=== PATIENT | male | born 1975 | race Caucasian/White ===

== ENCOUNTER 2016-07-28 19:33 | Inpatient (IN) ==
[2016-07-28] MEDS ORDERED: Clindamycin 600 MG/50 ML 600 MG/50 ML IV.SOLN IVPB STA (19:45)
--- NOTE | 2016-07-28 19:51 | Emergency Department Note ---
START Narrative - START START: I examined this patient and my medical decision-making was reviewed with the SR TECHNICAL SALES CONSULTANT/PA/Advanced Practice Nurse/Resident Physician. I agree with the documented findings, disposition and treatment plan as described except to the extent set forth below. ED attending note: Patient seen with the emergency medicine resident . Please see a copy of his note for details of the H&P, evaluation and management and disposition of this emergency Department patient. We independently had [id number] contact with the patient. Briefly 21-year-old male transferred by EMS from the [facility]. Patient complaining of nonspecific chest pain in addition to appearing septic from rapidly progressing cellulitis from his extremities. He is up to 102.5 temperature, tachycardic 135. Patient will get EKG troponin IV fluid sepsis protocol. Patient will be admitted. Provided one hour critical care service this patient. IV antibiotics being given.
[2016-07-28 20:18] LABS: Bilirubin,Urine Negative (Negative); Blood,Urine Negative (Negative); Clarity,Urine Clear (Clear); Color,Urine Yellow (Yellow); Glucose,Urine (UA) Normal (Normal); Ketones,Urine Negative (Negative); Leukocyte Esterase,Urine Negative (Negative); Nitrite,Urine Negative (Negative); PH,Urine 7.5 pH Units (5.0-8.0); Protein,Urine Trace mg/dL (Neg-Trace); Specific Gravity,Urine 1.021 (1.010-1.025); Urobilinogen,Urine Normal (Normal)
[2016-07-28 20:21] LABS: Bacteria,Urine None Seen per hpf (None-Few); Hyaline Casts,Urine None Seen per lpf (None-Few); Squamous Epithelial Cell,Urine Moderate per lpf (None-Few); WBC,Urine 0-3 per hpf (0-3)
--- NOTE | 2016-07-28 20:21 | Emergency Department Note ---
Disposition Clinical Impression: Sepsis Qualifiers: Sepsis type: sepsis due to unspecified organism Qualified Code(s): A41.9 - Sepsis, unspecified organism Disposition: Admitted As Inpatient Condition: Fair Referrals: NO,PCP [Primary Care Provider] - Forms: ED Satisfaction Letter General Adult HPI - General Chief complaint: ED Chest Pain Stated complaint: Chest Pain Time Seen by Provider: 07/28/16 19:38 Source: patient, EMS Limitations: no limitations Nursing Notes Reviewed: Yes Vital Signs Reviewed: Yes - History of Present Illness HPI Narrative: Patient here for as a transfer from the [place] for evaluation of chest pain. Patient's symptoms initially started earlier today with left leg pain. Patient has area of erythema swelling and tenderness to the left distal leg. Patient with significant spreading throughout the day associated with nodule in the inner inguinal area as well as temperature of 103 and associated chest pain heaviness. Patient has a history of testicular cancer that they state is "okay" however is being watched every 6 months with checkups. Pain Scale: 10 - Related Data Home Medications Medication Instructions Recorded Confirmed Aripiprazole [Abilify] 5 mg PO BID 02/06/16 05/12/16 Aspirin/Acetaminophen/Caffeine 1 tab PO DAILY PRN 02/06/16 05/12/16 [Excedrin Migraine Caplet] Atenolol [Tenormin] 25 mg PO BID 02/06/16 05/12/16 Atorvastatin [Lipitor] 20 mg PO 3XW 02/06/16 05/12/16 Dexamethasone 2 mg PO BID 02/06/16 05/12/16 Duloxetine HCl 30 mg PO DAILY 02/06/16 05/12/16 Furosemide [Lasix] 20 mg PO BID 02/06/16 05/12/16 HydrOXYzine Pamoate 25 mg PO TID 02/06/16 05/12/16 LORazepam [Ativan] 0.5 mg PO DAILY 02/06/16 05/12/16 OxyCODONE ER (12 HR) [OxyCONTIN] 20 mg PO Q12H PRN 02/06/16 05/12/16 Budesonide/Formoterol 160/4.5 2 puff IH BIDR 05/12/16 05/12/16 [Symbicort 160/4.5] Cholecalciferol (D-3) [Vitamin D] 1,000 unit PO DAILY 05/12/16 05/12/16 Losartan [Cozaar] 25 mg PO DAILY 05/12/16 05/12/16 Magnesium Amino Acid Chelate 100 mg PO DAILY 05/12/16 05/12/16 [Magnesium] Metformin [Glucophage] 500 mg PO BIDWM 05/12/16 05/12/16 Metoprolol [Lopressor] 25 mg PO BID 05/12/16 05/12/16 Naproxen [Naprosyn] 250 mg PO BID PRN 05/12/16 05/12/16 Potassium Chloride [K-Tab ER] 20 meq PO DAILY 05/12/16 05/12/16 Pregabalin [Lyrica] 150 mg PO BID 05/12/16 05/12/16 Propranolol [Inderal] 20 mg PO BID 05/12/16 05/12/16 Tizanidine HCl [Zanaflex] 4 mg PO TID 05/12/16 05/12/16 TraMADol [Ultram] 100 mg PO BID PRN 05/12/16 05/12/16 Allergies Allergy/AdvReac Type Severity Reaction Status Date / Time NSAIDS (Non-Steroidal Allergy Unknown UNKNOWN Verified 07/28/16 19:47 Anti-Inflamma amitriptyline [From Elavil] Allergy See Verified 07/28/16 19:47 Comments divalproex sodium Allergy See Verified 07/28/16 19:47 Comments Rafael Pena Allergy See Verified 07/28/16 19:47 Comments lovastatin Allergy See Verified 07/28/16 19:47 Comments mirtazapine Allergy See Verified 07/28/16 19:47 Comments quetiapine Allergy See Verified 07/28/16 19:47 Comments simvastatin [From Zocor] Allergy See Verified 07/28/16 19:47 Comments trazodone Allergy See Verified 07/28/16 19:47 Comments All systems ED: reviewed and negative except as stated. Constitutional: Reports: fever, chills, weakness Eyes: Denies: eye pain ENT ED: Denies: ear pain Cardiovascular: Reports: chest pain Respiratory: Reports: dyspnea Gastrointestinal: Denies: abdominal pain, nausea Genitourinary: Denies: urgency Musculoskeletal: Denies: back pain Integumentary: Reports: other (Erythema to lower leg) Neurological: Denies: headache Psychiatric: Denies: anxiety Endocrine: Reports: fatigue Past Medical History - Past Medical History Medical history: Reports: arthritis, cancer, GERD, hyperlipidemia, hypertension , other Surgical history: Reports: cancer surgery, herniorrhaphy, orthopedic, other, other Psychiatric history: Reports: anxiety, bipolar, depression - Social History Smoking Status: Former smoker Smokeless Tobacco Status: No Alcohol use: Reports: rarely Drug use: Reports: none Physical Exam - General Limitations: no limitations General appearance: alert - Head Head exam: atraumatic, normocephalic - Eye Eye exam: Present: normal appearance - ENT ENT exam: normal exam - Neck Neck exam: Present: normal inspection - Chest Chest inspection: Present: normal inspection, symmetric chest wall rise - Respiratory Respiratory exam: Present: normal lung sounds bilaterally. Absent: respiratory distress - Cardiovascular Cardiovascular exam: Present: normal rhythm, tachycardia - Abdominal Exam Abdominal exam: Present: soft, Non-Tender - Extremities Exam Extremities exam: Present: other (Patient was swelling erythema and tenderness to the left distal leg. Not circumferential disc time. Patient with what is likely reactive lymph nodes to the inguinal region.) Course - Reevaluation(s) Reevaluation #1: Patient with elevated white count. Negative lactate. Troponin of 0.04. Patient will need hospital admission for further evaluation and management. Antibiotics given. - Consultations Consultation #1: Patient signed out to hospitalist Dr. Almodovar. Patient excepted for admission. Vital Signs Temperature 102.6 F H 07/28/16 19:39 Pulse Rate 131 07/28/16 19:39 Respiratory Rate 20 07/28/16 19:39 Blood Pressure 169/89 07/28/16 19:39 O2 Sat by Pulse Oximetry 94 L 07/28/16 19:39 Temperature 102.6 F H 07/28/16 19:39 Pulse Rate 131 07/28/16 19:39 Respiratory Rate 20 07/28/16 19:39 Blood Pressure 169/89 07/28/16 19:39 O2 Sat by Pulse Oximetry 94 L 07/28/16 19:39 Oxygen Delivery Oxygen Delivery Nasal Cannula Medical Decision Making - Medical Records Medical records reviewed: Yes I reviewed the patient's medical records. - Lab Data Lab results reviewed: Yes I reviewed the patient's lab results. Result diagrams: 07/28/16 20:16 07/28/16 20:16 Lab Results 07/28/16 07/28/16 07/28/16 Range/Units 20:04 20:16 20:16 WBC 14.9 H (4.3-11.1) K/mcL RBC 5.57 H (4.19-5.50) M/mcL Hgb 14.2 (12.9-16.9) g/dL Hct 43.7 (37.5-50.1) % MCV 78.5 L (83.0-100.0) fL MCH 25.5 L (28.0-33.3) pg MCHC 32.5 (31.6-35.5) g/dL RDW 15.1 H (11.5-14.5) % Plt Count 228 (140-400) K/mcL MPV 9.5 (9.4-12.4) fL Immature Gran % 0.4 (0-4) % Seg Neutrophils % 91.6 % Lymphocytes % 3.5 % Monocytes % 4.4 % Eosinophils % 0.0 % Basophils % 0.1 % Neutrophils # 13.7 H (1.6-8.9) K/mcL Lymphocytes # 0.5 L (0.6-4.6) K/mcL Monocytes # 0.7 (0.0-1.3) K/mcL Eosinophils # 0.0 (0.0-0.6) K/mcL Basophils # 0.0 (0.0-0.2) K/mcL PT 12.0 (9.4-12.1) Seconds INR 1.1 Sodium (136-145) mEq/L Potassium (3.5-4.5) mEq/L Chloride (98-109) mEq/L Carbon Dioxide (19-29) mEq/L BUN (8-26) mg/dL Creatinine (0.72-1.25) mg/dL Est GFR ( Amer) (> 60) Est GFR (Non-Af Amer) (> 60) BUN/Creatinine Ratio (6-26) Glucose (70-99) mg/dL Calculated Osmolality (280-300) Lactic Acid (0.5-2.2) mmol/L Calcium (8.6-10.8) mg/dL Phosphorus (2.3-4.7) mg/dL Magnesium (1.6-2.6) mg/dL Total Bilirubin (0.2-1.2) mg/dL Direct Bilirubin (0.0-0.5) mg/dL Indirect Bilirubin (0.0-1.2) mg/dL AST (5-34) Units/L ALT (0-55) Units/L Alkaline Phosphatase (38-126) Units/L Troponin I (0-0.03) ng/mL Serum Total Protein (6.0-8.3) g/dL Albumin (3.5-5.0) g/dL Globulin (2.4-3.5) g/dL Albumin/Globulin Ratio (1.1-2.2) Urine Color Yellow (Yellow) Urine Clarity Clear (Clear) Urine pH 7.5 (5.0-8.0) pH Units Ur Specific [place] 1.021 (1.010-1.025) Urine Protein Trace (Neg-Trace) mg/dL Urine Glucose (UA) Normal (Normal) mg/dL Urine Ketones Negative (Negative) mg/dL Urine Blood Negative (Negative) Urine Nitrite Negative (Negative) Urine Bilirubin Negative (Negative) Urine Urobilinogen Normal (Normal) mg/dL Ur Leukocyte Esterase Negative (Negative) Urine Microscopic RBC 3-5 H (0-3) per hpf Urine Microscopic WBC 0-3 (0-3) per hpf Ur Squamous Epith Cells Moderate H (None-Few) per lpf Urine Bacteria None Seen (None-Few) per hpf Hyaline Casts None Seen (None-Few) per lpf Ur Culture Indicated? NO (NO) 07/28/16 07/28/16 07/28/16 Range/Units 20:16 20:16 20:16 WBC (4.3-11.1) K/mcL RBC (4.19-5.50) M/mcL Hgb (12.9-16.9) g/dL Hct (37.5-50.1) % MCV (83.0-100.0) fL MCH (28.0-33.3) pg MCHC (31.6-35.5) g/dL RDW (11.5-14.5) % Plt Count (140-400) K/mcL MPV (9.4-12.4) fL Immature Gran % (0-4) % Seg Neutrophils % % Lymphocytes % % Monocytes % % Eosinophils % % Basophils % % Neutrophils # (1.6-8.9) K/mcL Lymphocytes # (0.6-4.6) K/mcL Monocytes # (0.0-1.3) K/mcL Eosinophils # (0.0-0.6) K/mcL Basophils # (0.0-0.2) K/mcL PT (9.4-12.1) Seconds INR Sodium 138 (136-145) mEq/L Potassium 4.0 (3.5-4.5) mEq/L Chloride 105 (98-109) mEq/L Carbon Dioxide 22 (19-29) mEq/L BUN 14 (8-26) mg/dL Creatinine 0.94 (0.72-1.25) mg/dL Est GFR ( Amer) > 60 (> 60) Est GFR (Non-Af Amer) > 60 (> 60) BUN/Creatinine Ratio 15 (6-26) Glucose 116 H (70-99) mg/dL Calculated Osmolality 287 (280-300) Lactic Acid 2.0 (0.5-2.2) mmol/L Calcium 9.7 (8.6-10.8) mg/dL Phosphorus 2.3 (2.3-4.7) mg/dL Magnesium 1.3 L (1.6-2.6) mg/dL Total Bilirubin 0.7 (0.2-1.2) mg/dL Direct Bilirubin 0.2 (0.0-0.5) mg/dL Indirect Bilirubin 0.5 (0.0-1.2) mg/dL AST 19 (5-34) Units/L ALT 40 (0-55) Units/L Alkaline Phosphatase 119 (38-126) Units/L Troponin I 0.04 H* (0-0.03) ng/mL Serum Total Protein 7.4 (6.0-8.3) g/dL Albumin 3.7 (3.5-5.0) g/dL Globulin 3.7 H (2.4-3.5) g/dL Albumin/Globulin Ratio 1.0 L (1.1-2.2) Urine Color (Yellow) Urine Clarity (Clear) Urine pH (5.0-8.0) pH Units Ur Specific [place] (1.010-1.025) Urine Protein (Neg-Trace) mg/dL Urine Glucose (UA) (Normal) mg/dL Urine Ketones (Negative) mg/dL Urine Blood (Negative) Urine Nitrite (Negative) Urine Bilirubin (Negative) Urine Urobilinogen (Normal) mg/dL Ur Leukocyte Esterase (Negative) Urine Microscopic RBC (0-3) per hpf Urine Microscopic WBC (0-3) per hpf Ur Squamous Epith Cells (None-Few) per lpf Urine Bacteria (None-Few) per hpf Hyaline Casts (None-Few) per lpf Ur Culture Indicated? (NO) - Radiology Data Radiology results reviewed: Yes I reviewed the patient's radiology results. - EKG Data EKG #1 EKG attestation: Yes I reviewed and interpreted this EKG. EKG results narrative: Patient's EKG shows sinus tachycardia with ventricular rate of 125. Incomplete right bundle branch block. OH interval 165. QRS 108. QTC 380. Patient has no ST elevations. Patient with mild depressions in V6 and V5 and V4. Right bundle ranch block present on previous EKG of 02/06/16. Nonspecific T-wave changes.
[2016-07-28 20:24] LABS: Basophils % 0.1 %; Hematocrit 43.7 % (37.5-50.1); Hemoglobin 14.2 g/dL (12.9-16.9); Immature Granulocytes % 0.4 % (0-4); Lymphocytes # 0.5 K/mcL (0.6-4.6); Lymphocytes % 3.5 %; Mean Corpuscular HGB Conc 32.5 g/dL (31.6-35.5); Mean Corpuscular Hemoglobin 25.5 pg (28.0-33.3); Mean Corpuscular Volume 78.5 fL (83.0-100.0); Mean Platelet Volume 9.5 fL (9.4-12.4); Monocytes # 0.7 K/mcL (0.0-1.3); Monocytes % 4.4 %; Neutrophils # 13.7 K/mcL (1.6-8.9); Platelet Count 228 K/mcL (140-400); Red Blood Count 5.57 M/mcL (4.19-5.50); Red Cell Distribution Width 15.1 % (11.5-14.5); Segmented Neutrophils % 91.6 %
[2016-07-28 20:30] LABS: INR 1.1
[2016-07-28 20:38] LABS: Alanine Aminotransferase 40 Units/L (0-55); Albumin 3.7 g/dL (3.5-5.0); Alkaline Phosphatase 119 Units/L (38-126); Aspartate Amino Transferase 19 Units/L (5-34); BUN/Creatinine Ratio 15 (6-26); Bilirubin,Direct 0.2 mg/dL (0.0-0.5); Bilirubin,Indirect 0.5 mg/dL (0.0-1.2); Bilirubin,Total 0.7 mg/dL (0.2-1.2); Blood Urea Nitrogen 14 mg/dL (8-26); Calcium 9.7 mg/dL (8.6-10.8); Carbon Dioxide 22 mEq/L (19-29); Chloride 105 mEq/L (98-109); Globulin 3.7 g/dL (2.4-3.5); Glucose 116 mg/dL (70-99); Magnesium 1.3 mg/dL (1.6-2.6); Osmolality,Calculated 287 (280-300); Phosphorous 2.3 mg/dL (2.3-4.7); Sodium 138 mEq/L (136-145); Total Protein 7.4 g/dL (6.0-8.3); eGFR For African Americans > 60 (> 60); eGFR For Non-African Americans > 60 (> 60)
[2016-07-28] MEDS ORDERED: *HR* HYDROmorphone (PF) 1 MG/ML SYRINGE IVP ONE (20:44)
[2016-07-28] MEDS ORDERED: Ondansetron 4 MG/2 ML VIAL IVP ONE (20:44)
[2016-07-28] MEDS ORDERED: 0.9 % Sodium Chloride 1,000 ML IV ONE (20:49)
[2016-07-28] MEDS ORDERED: Acetaminophen 325 MG TABLET PO PRN (22:29)
[2016-07-28] MEDS ORDERED: *HR* HYDROcodone/Acet 5/325 mg TABLET PO PRN (22:29)
[2016-07-28] MEDS ORDERED: Naloxone 0.4 MG/ML INJ IVP PRN (22:29)
--- NOTE | 2016-07-28 22:56 | Internal Med History&Physical ---
Date of Encounter: 07/28/16 Time of Encounter: 22:48 Assessment and Plan (1) Sepsis Current visit: Yes Status: Acute Patient with cellulitis, fever to 103, tachycardia (HR 103-125), WBC 14.9, lactate measured 2.0 and then 1.4 on redraw. BP dropped from 169/89 to 90/63. 1L bolus given in ED will give 2 more liters for 3L total (30Ml/kg = 3510mL) Blood cultures drawn, awaiting results ED gave Clindamycin for cellulitis Start Vanc and Unasyn for broad spectrum coverage in patient with multiple medical issues. continuous cardiac/vascular sonographer continuous pulse oximetry Qualifiers: Sepsis type: sepsis due to unspecified organism Qualified Code(s): A41.9 - Sepsis, unspecified organism (2) Chest pain Current visit: No Status: Acute Patient reported chest pain occurring along with his shooting leg pain earlier in the day. Described as shooting pain. He is febrile with tachycardia, elevated WBC and has LLE tender erythema consistent with cellulitis. Low concern for IA, but will rule out with cardiac/vascular sonographer and trend troponins. Also consider PE, will get doppler of LLE to check for DVT. Patient also with history of anxiety and likened the chest pain to panic attacks, as another possibility. Qualifiers: Chest pain type: unspecified Qualified Code(s): R07.9 - Chest pain, unspecified (3) Cellulitis Current visit: Yes Status: Acute Tender, erythematous patch on Left lower leg. Patient febrile to 103F, Tachycardia. Has multiple medical issues and pneumonia last month. Will treat with Vancomycin and Unasyn to cover for possible MRSA. Qualifiers: Site of cellulitis: extremity Site of cellulitis of extremity: lower extremity Laterality: left Qualified Code(s): L03.116 - Cellulitis of left lower limb (4) Chronic, continuous use of opioids Current visit: Yes Status: Acute Patient with chronic back pain, and on high dose of chronic opioids at home. Will continue formulary equivalent of home dose of medications and give IV dilaudid for breakthrough pain related to cellulitis. continuous pulse oximetry Narcan ordered PRN for respiratory depression (5) COPD (chronic obstructive pulmonary disease) Current visit: Yes Status: Acute Patient reports history of COPD requiring home oxygen as recently as 6 months ago. Wears cpap for sleep apnea at night. lungs clear to auscultation on exam satting 94% on 2L NC titrate O2 for O2 sat > 92% PRN duoneb treatments for any wheezing or SOB respiratory therapy consult Qualifiers: COPD type: unspecified COPD Qualified Code(s): J44.9 - Chronic obstructive pulmonary disease, unspecified (6) Chronic generalized pain disorder Current visit: No Status: Chronic Patient with spinal stimulator and on chronic opioid medication. Will continue formulary equivalent of home dose. IV dilaudid for breakthrough pain. Narcan PRN for respiratory depression (7) Nicotine dependence with nicotine-induced disorder Current visit: No Status: Chronic Patient reports he quit smoking 3 weeks ago, and now "vapes". Declined nicotine patch. Advised cessation of vaping as well. Qualifiers: Nicotine product type: cigarettes Qualified Code(s): F17.219 - Nicotine dependence, cigarettes, with unspecified nicotine-induced disorders (8) DVT prophylaxis Current visit: Yes Status: Acute ambulate with assistance heparin 5,000us SQ BID Internal Medicine - H&P: HPI Chief complaint: Leg pain, chest pain Admitted From: Emergency Dept Plans for Post Hospital Care: Home History of present illness: Mr. Aviles is a 41 year old male with history of COPD, HTN, hyperlipidemia, testicular cancer s/p orchiectomy and retroperitoneal lymphadnectomy (2005), bipolar disorder, anxiety, chronic pain and spinal stenosis who presented to the ED with pain in his left leg and chest pain. He reports the pain started earlier today in his groin and would radiate down his leg and he reports he would have chest pain at the same time. The pain is described as severe, shooting pain and worsened over the course of the day. He presented to the [facility], and was transferred here. Evaluation in the ED was significant for fever of 103 , sinus tachycardia, elevated WBC of 14.9 and patch of erythema on medial aspect of left lower leg, which was warm and tender to palpation. Troponin was 0.4, lactic acid was 2.0 and 1.4 on redraw. Blood cultures were drawn and patient was given a dose of clindamycin for cellulitis, as well as a fluid bolus. He reports associated nausea, lightheadedness with the shooting pain. He denies any headache, vomiting, palpitations, shortness of breath, abdominal pain. He reports he feel somewhat better after administration of antibiotics and pain medicine. On exam, he is alert and oriented and in no distress. He is satting 94% on 2L NC, tachycardic with HR 105, lungs clear bilaterally. He denies any current chest pain. He has a tender, palpable mass in left groin consistent with lymphadenopathy, and a patch of tender erythema on medial aspect of left lower leg. Past Med Surg Social Fam HX - Past Medical History Medical history: arthritis, cancer (testicular cancer s/p orchiectomy and retroperitoneal lymphadenectomy 2005), COPD, GERD, hyperlipidemia, hypertension , other (spinal stenosis with right foot drop, chronic pain) Psychiatric history: anxiety, bipolar, depression - Past Surgical History Surgical History: cancer surgery (orchiectomy and retroperitoneal lymphadenectomy), herniorrhaphy (right inguinal), orthopedic, other, other ( spinal stimulator) - Social History Smoking Status: Current every day smoker (quit cigarettes 3 weeks ago, now vapes ) Smokeless Tobacco Status: No Alcohol use: rarely Drug use: none - Family History Mother Living Status: Still Living Hx Family Cardiac Disorders: Yes Hx Family Respiratory Disorders: No Hx Family Cancer: Yes Hx Family GI Disorders: No Hx Family Endocrine Disorder: No Hx Family Neuromuscular Disorders: No Hx Family Neurologic Disorders: No Hx Family HEENT Disorders: No Hx Family Autoimmune Disorders: No Internal Medicine - H&P: Meds Aripiprazole [Abilify] 10 mg PO DAILY 02/06/16 [History] Atorvastatin [Lipitor] 20 mg PO DAILY 02/06/16 [History] Furosemide [Lasix] 20 mg PO BID 02/06/16 [History] HydrOXYzine Pamoate 25 mg PO TID 02/06/16 [History] Cholecalciferol (D-3) [Vitamin D] 1,000 unit PO DAILY 05/12/16 [History] Losartan [Cozaar] 25 mg PO DAILY 05/12/16 [History] Metoprolol [Lopressor] 25 mg PO BID 05/12/16 [History] Potassium Chloride [K-Tab ER] 10 meq PO DAILY 05/12/16 [History] Pregabalin [Lyrica] 150 mg PO BID 05/12/16 [History] Tizanidine HCl [Zanaflex] 4 mg PO TID 05/12/16 [History] TraMADol [Ultram] 100 mg PO BID PRN 05/12/16 [History] Oxymorphone HCl [Oxymorphone HCl ER] 20 mg PO BID 07/28/16 [History] Allergies amitriptyline [From Elavil] Allergy (Unknown, Verified 07/28/16 22:08) See Comments PATIENT UNSURE OF REACTIONS- LISTED ON [facility] CH[facility] divalproex sodium Allergy (Unknown, Verified 07/28/16 22:08) See Comments PATIENT UNSURE OF REACTIONS- LISTED ON [facility] CHART ibuprofen [From Motrin] Allergy (Unknown, Verified 07/28/16 22:08) See Comments PATIENT UNSURE OF REACTIONS- LISTED ON [facility] CHART [place] Allergy (Unknown, Verified 07/28/16 22:08) See Comments PATIENT UNSURE OF REACTIONS- LISTED ON [facility] CHART lovastatin Allergy (Unknown, Verified 07/28/16 22:08) See Comments PATIENT UNSURE OF REACTIONS- LISTED ON [facility] CHART mirtazapine Allergy (Unknown, Verified 07/28/16 22:08) See Comments PATIENT UNSURE OF REACTIONS- LISTED ON [facility] CH[facility] NSAIDS (Non-Steroidal Anti-Inflamma Allergy (Unknown, Verified 07/28/16 22:09) See Comments PATIENT UNSURE OF REACTIONS- LISTED ON [facility] CHART quetiapine Allergy (Unknown, Verified 07/28/16 22:08) See Comments PATIENT UNSURE OF REACTIONS- LISTED ON [facility] CHART simvastatin [From Zocor] Allergy (Unknown, Verified 07/28/16 22:08) See Comments PATIENT UNSURE OF REACTIONS- LISTED ON [facility] CHART trazodone Allergy (Unknown, Verified 07/28/16 22:08) See Comments PATIENT UNSURE OF REACTIONS- LISTED ON [facility] CHART Zolpidem Allergy (Unknown, Verified 07/28/16 22:08) See Comments PATIENT UNSURE OF REACTIONS- LISTED ON [facility] CHART All Systems PM: A 10-system review of systems was performed and is negative for pertinent findings except as documented above in the HPI. - Constitutional Constitutional: fever(s), malaise - EENT Eyes: no change in vision, no discharge, no pain, no photophobia Nose, mouth and throat: no dysphagia, no nasal discharge, no neck pain, no sore throat - Cardiovascular Cardiovascular ROS IM: chest pain, lightheadedness, no dyspnea, no dyspnea on exertion, no palpitations, no syncope - Respiratory Respiratory: no cough, no dyspnea, no wheezing, no excessive phlegm production - Gastrointestinal Gastrointestinal: nausea, no abdominal pain, no diarrhea, no hematemesis, no hematochezia, no melena, no vomiting - Musculoskeletal Musculoskeletal ROS IM: numbness (bilateral hands), no tingling - Integumentary Integumentary IM: as per HPI, erythema - Neurological Neurological ROS: focal weakness (chronic right foot drop), no confusion, no convulsions, no numbness, no tingling, no tremor(s) - Hematologic/Lymphatic Hematologic/Lymphatic: lymphadenopathy (left groin) - Constitutional Vitals: Temp Pulse Resp BP Pulse Ox 99.2 F 100 16 108/59 95 07/28/16 22:42 07/28/16 22:42 07/28/16 22:42 07/28/16 22:42 07/28/16 22:42 General appearance: Present: A&O X 3, no acute distress, obese - Head Head exam: Present: atraumatic, normocephalic - Eye Eye exam: Present: PERRL, conjuntiva pink, sclera anicteric Pupils: Present: PERRL - Neck Neck exam general surgery: Present: supple, trachea midline. Absent: lymphadenopathy - Respiratory Respiratory exam: Present: CTAB. Absent: accessory muscle use, rales, rhonchi, wheezes - Cardiovascular Cardiovascular exam: Present: +S1, +S2, tachycardia. Absent: diastolic murmur, systolic murmur - Expanded Cardiovascular Exam Peripheral pulses: 2+: Posterior Tibialis (L), Posterior Tibialis (R), Dorsalis Pedis (L) PM, Dorsalis Pedis (R) PM - GI/Abdominal GI/Abdominal exam: Present: normal bowel sounds, soft, no peritoneal signs. Absent: distended, tenderness - Extremities Exam Extremities exam: Present: normal capillary refill, radial pulses palpable and symetrical. Absent: pedal edema Additional comments: Tender, palpable mass in left groin consistent with lymphadenopathy - Expanded Lower Extremities Exam Lower Leg exam: Present: erythema (left), tenderness (left) - Neurological Exam Neurological exam: Present: CN II-XII intact, oriented X3, no focal deficits ( no new focal deficits. chronic right foot drop). Absent: facial droop, speech deficit - Skin Additional comments: Medial aspect of left lower leg with patch of erythema approximately 10cm x 10 cm, warm to touch and tender to palpation Internal Med - H&P Results - Labs CBC & Chem 7: 07/28/16 20:16 07/28/16 20:16
[2016-07-28] MEDS ORDERED: Vancomycin 1,750 MG in D5% in Water 250 ML IVPB SCH (23:00)
[2016-07-28] MEDS: Ampicillin/Sulbactam 3,000 MG in 0.9 % Sodium Chloride Mini Bag 100 ML IVPB SCH (23:19)
[2016-07-28] MEDS ORDERED: Ipratropium/Albuterol Neb 3 ML IH PRN (23:55)
[2016-07-29] MEDS ORDERED: Vancomycin 2,000 MG in D5% in Water 500 ML IVPB ONE
[2016-07-29] MEDS: *HR* HYDROmorphone (PF) 1 MG/ML SYRINGE IVP PRN ×5 (01:49→23:46)
[2016-07-29 03:19] LABS: BUN/Creatinine Ratio 15 (6-26); Basophils % 0.1 %; Blood Urea Nitrogen 13 mg/dL (8-26); Calcium 8.7 mg/dL (8.6-10.8); Carbon Dioxide 26 mEq/L (19-29); Chloride 105 mEq/L (98-109); Glucose 113 mg/dL (70-99); Hematocrit 39.6 % (37.5-50.1); Hemoglobin 12.9 g/dL (12.9-16.9); Immature Granulocytes % 0.3 % (0-4); Lymphocytes # 0.7 K/mcL (0.6-4.6); Mean Corpuscular HGB Conc 32.6 g/dL (31.6-35.5); Mean Corpuscular Hemoglobin 25.9 pg (28.0-33.3); Mean Corpuscular Volume 79.4 fL (83.0-100.0); Mean Platelet Volume 9.6 fL (9.4-12.4); Monocytes # 0.2 K/mcL (0.0-1.3); Monocytes % 2.1 %; Neutrophils # 10.6 K/mcL (1.6-8.9); Osmolality,Calculated 287 (280-300); Platelet Count 198 K/mcL (140-400); Potassium 3.8 mEq/L (3.5-4.5); Red Blood Count 4.99 M/mcL (4.19-5.50); Red Cell Distribution Width 15.6 % (11.5-14.5); Segmented Neutrophils % 91.5 %; Sodium 138 mEq/L (136-145); eGFR For African Americans > 60 (> 60); eGFR For Non-African Americans > 60 (> 60)
[2016-07-29] MEDS ORDERED: 0.9 % Sodium Chloride 1,000 ML ONE ×2 (03:59→05:24)
[2016-07-29] MEDS: 0.9 % Sodium Chloride 1,000 ML IVC SCH ×2 (04:02→05:24)
[2016-07-29 04:16] LABS: Platelet Estimate Normal (Normal)
[2016-07-29] MEDS: *HR* OxyCODONE ER (12 HR) 10 MG TABLET PO SCH ×2 (06:00→18:10)
[2016-07-29] MEDS: *HR* Heparin 5,000 UNIT/ML VIAL SQ SCH ×2 (06:00→18:10)
[2016-07-29] MEDS: Ampicillin/Sulbactam 3,000 MG in 0.9 % Sodium Chloride Mini Bag 100 ML IVPB SCH ×4 (06:01→23:46)
[2016-07-29] MEDS: hydrOXYzine pamoate 25 MG CAPSULE PO SCH ×3 (08:45→19:56)
[2016-07-29] MEDS: Cholecalciferol (D-3) 1,000 UNIT TABLET PO SCH (08:45)
[2016-07-29] MEDS: Pregabalin 75 MG CAPSULE PO SCH ×2 (08:46→19:56)
[2016-07-29] MEDS: tiZANidine 4 MG TABLET PO SCH ×3 (08:46→19:57)
[2016-07-29] MEDS: Furosemide 20 MG TABLET PO SCH ×2 (08:46→18:10)
[2016-07-29] MEDS: ARIPiprazole 5 MG TABLET PO SCH (08:46)
--- NOTE | 2016-07-29 08:50 | Internal Med Progress Note ---
<Mian Harry - Last Filed: 07/29/16 14:03> Date of Encounter: 07/29/16 Time of Encounter: 08:48 - Assessment and plan (1) Sepsis Current Visit: Yes Status: Acute Assessment and plan: Likely source is left leg cellulitis, which patient only noticed yesterday morning Patient no longer tachycardic, febrile, and white count improved to 11.6 from 14.9 Continue broad spectrum abx with Vancomycin and Unasyn, also received 1 dose of Clindamycin Await blood cultures prior to de-escalation Qualifiers: Sepsis type: sepsis due to unspecified organism Qualified Code(s): A41.9 - Sepsis, unspecified organism (2) COPD (chronic obstructive pulmonary disease) Current Visit: Yes Status: Chronic Assessment and plan: Not currently in exacerbation Continue with supplemental oxygen and duonebs, will add Symbicort Qualifiers: COPD type: unspecified COPD Qualified Code(s): J44.9 - Chronic obstructive pulmonary disease, unspecified (3) Cellulitis Current Visit: Yes Status: Acute Assessment and plan: Plan as above with empiric antibiotics until culture results Preliminary results of doppler did not show DVT of left leg Qualifiers: Site of cellulitis: extremity Site of cellulitis of extremity: lower extremity Laterality: left Qualified Code(s): L03.116 - Cellulitis of left lower limb (4) Chest pain Current Visit: No Status: Resolved Assessment and plan: Likely non-ACS related as troponin only had one borderline result of 0.04 and 2 negative levels He is currently chest pain free Qualifiers: Chest pain type: unspecified Qualified Code(s): R07.9 - Chest pain, unspecified (5) DVT prophylaxis Current Visit: Yes Status: Acute Assessment and plan: Heparin 5000 units BID - Subjective Interval history: Pt seen and examined. He states his chest pain is non-existent and has no issues with breathing. He still complains of leg pain especially the left calf, which shoots up to his groin. He complains of "knots" that he can feel up his left leg. He says his fever has subsided and has no issues with nausea, vomiting , diarrhea. - Constitutional Vitals: Temp Pulse Resp BP Pulse Ox 98.5 F 91 16 102/51 93 L 07/29/16 07:44 07/29/16 07:44 07/29/16 07:44 07/29/16 07:44 07/29/16 07:44 General appearance: Present: A&O X 3, no acute distress, obese - Head Head exam: Present: atraumatic, normocephalic - Eye Eye exam: Present: PERRL, conjuntiva pink, sclera anicteric - Neck Neck exam general surgery: Present: supple, trachea midline. Absent: lymphadenopathy - Respiratory Respiratory exam: Present: CTAB. Absent: accessory muscle use, rales, rhonchi, wheezes - Cardiovascular Cardiovascular exam: Present: RRR, +S1, +S2. Absent: diastolic murmur, gallop, rubs, systolic murmur - GI/Abdominal GI/Abdominal exam: Present: normal bowel sounds, soft, no peritoneal signs. Absent: distended, tenderness - Extremities Exam Extremities exam: Present: tenderness, warm (left lower extremity erythematous and warm to touch), radial pulses palpable and symetrical. Absent: calf tenderness, cyanotic, pedal edema - Neurological Exam Neurological exam: Present: alert, no focal deficits. Absent: facial droop, speech deficit - Skin Skin exam: Present: dry, intact Internal Medicine: Result - Labs CBC & Chem 7: 07/29/16 02:50 07/29/16 02:50 Labs: Short CBC 07/29/16 Range/Units 02:50 WBC 11.6 H (4.3-11.1) K/mcL Hgb 12.9 (12.9-16.9) g/dL Hct 39.6 (37.5-50.1) % Plt Count 198 (140-400) K/mcL Neutrophils # 10.6 H (1.6-8.9) K/mcL BMP 07/29/16 02:50 Sodium 138 Potassium 3.8 Chloride 105 Carbon Dioxide 26 BUN 13 Creatinine 0.85 Glucose 113 H Calcium 8.7 Cardiac Enzymes 07/29/16 Range/Units 02:50 Troponin I 0.02 (0-0.03) ng/mL - ABG Interpretation ABG results: PT/INR, D-dimer PT 12.0 Seconds (9.4-12.1) 07/28/16 20:16 Consult Discharge Plan - Plan [facility] Provider[facility] - <Jaswinder Garvin - Last Filed: 07/29/16 17:38> Date of Encounter: 07/29/16 - Assessment and plan (1) Sepsis Current Visit: Yes Status: Acute Qualifiers: Sepsis type: sepsis due to unspecified organism Qualified Code(s): A41.9 - Sepsis, unspecified organism (2) Cellulitis Current Visit: Yes Status: Acute Qualifiers: Site of cellulitis: extremity Site of cellulitis of extremity: lower extremity Laterality: left Qualified Code(s): L03.116 - Cellulitis of left lower limb (3) Chest pain Current Visit: No Status: Resolved Qualifiers: Chest pain type: precordial chest pain Qualified Code(s): R07.2 - Precordial pain (4) COPD (chronic obstructive pulmonary disease) Current Visit: Yes Status: Chronic Qualifiers: COPD type: unspecified COPD Qualified Code(s): J44.9 - Chronic obstructive pulmonary disease, unspecified (5) Bipolar disorder Current Visit: No Status: Chronic Qualifiers: Active/Remission status: in remission of unspecified degree Qualified Code( s): F31.70 - Bipolar disorder, currently in remission, most recent episode unspecified - Constitutional Vitals: Temp Pulse Resp BP Pulse Ox 102.6 F H 100 17 145/78 94 L 07/29/16 15:00 07/29/16 15:00 07/29/16 15:00 07/29/16 15:00 07/29/16 15:00 Internal Medicine: Result - Labs CBC & Chem 7: 07/29/16 02:50 07/29/16 02:50 Labs: Short CBC 07/29/16 Range/Units 02:50 WBC 11.6 H (4.3-11.1) K/mcL Hgb 12.9 (12.9-16.9) g/dL Hct 39.6 (37.5-50.1) % Plt Count 198 (140-400) K/mcL Neutrophils # 10.6 H (1.6-8.9) K/mcL BMP 07/29/16 02:50 Sodium 138 Potassium 3.8 Chloride 105 Carbon Dioxide 26 BUN 13 Creatinine 0.85 Glucose 113 H Calcium 8.7 Cardiac Enzymes 07/29/16 07/29/16 Range/Units 02:50 08:43 Troponin I 0.02 0.01 (0-0.03) ng/mL - ABG Interpretation ABG results: PT/INR, D-dimer PT 12.0 Seconds (9.4-12.1) 07/28/16 20:16 - Attending Attestation I examined this patient and my medical decision-making was reviewed with the Resident Physician. I agree with the documented findings, disposition and treatment plan as described except to the extent set forth below. Mr. Aviles is currently admitted for acute cellulitis of L leg. He remains high risk due to acute infection and needs for pain medication and IV abx. Mr. Aviles feels feverish he says. Pain in leg persists. No diarrhea. No CP or SOB. Leg is worst part. Ultrasound is negative for DVT. Exam Alert. Comfortable Heart reg Lungs diminished. Edema and erythema L leg I/P 1. Acute cellulitis L leg. 2. Sepsis improving 3. COPD 4. Chest pain Further diagnoses and plan as above.
--- NOTE | 2016-07-29 11:39 | Electrocardiograph Report ---
[facility] Test Date: 2016-07-28 Pat Name: Leandro Aviles Department: 103 Room: 2NE22 Gender: M Checker Product Design: KELLI : 1975 Requested By: Hubert Fernandez Order Number: [id number] Reading MD: Joseph Christy Measurements Intervals [place] Rate: 125 P: 67 TX: 165 QRS: 60 QRSD: 108 T: 50 QT: 306 QTc: 380 Interpretive Statements SINUS TACHYCARDIA INCOMPLETE RIGHT BUNDLE BRANCH BLOCK ABNORMAL RHYTHM ECG Electronically Signed On 07-29-16 11:38:34 EST by Joseph Christy
[2016-07-29] MEDS: Vancomycin 1,500 MG in D5% in Water 250 ML IVPB SCH (14:15)
--- NOTE | 2016-07-29 16:08 | Venous Imaging Report ---
LE Venous Duplex Patient Name:Leandro Aviles Order Number:[id number] Procedure Date:07/29/2016 Date:1975Age:41 yrs Gender:Male Location:[facility] Room #: 2NE22 Multimedia Specialist:Kayla Okeefe Referring MD:Orquidea Calero CNP ctc operator:[facility] Reading MD:Demarco Sierra MD Primary Indications:Evaluate for DVT Secondary Indications: Risk Factors Yes/No Hx of Testicular cancer/multiple lymph nodes removed Impressions: Normal left lower extremity deep and superficial venous exam. Normal contralateral common femoral vein. Findings Prior Study: No prior study available for comparison. Lower Extremity Venous Duplex Side Vein Compress Spontaneous Flow Augment Diameter (cm) Depth (cm) Left Distal Iliac Normal Yes Phasic Yes Left Common Femoral Normal Yes Phasic Yes Left Superficial Femoral Normal Yes Phasic Yes Left Popliteal Normal Yes Phasic Yes Left Posterior Tibial Normal Yes Phasic Yes Left Peroneal Normal Yes Phasic Yes Left Saphenofemoral [place] Normal Yes Phasic Yes Left Great Saphenous Normal Yes Phasic Yes Left Lesser Saphenous Normal Yes Phasic Yes Right Common Femoral Normal Yes Phasic Yes Updated by Demarco Sierra MD on 07/29/2016 4:04:40 PM electronically signed on 07/29/2016 4:04:49 PM with status of Final
[2016-07-29] MEDS: Acetaminophen 325 MG TABLET PO SCH ×3 (18:09→23:45)
[2016-07-29] MEDS: Ondansetron ODT 4 MG TAB.RAPDIS SL PRN (18:13)
[2016-07-29] MEDS: Budesonide/Formoterol 160/4.5 MDI IH SCH (21:52)
[2016-07-30] MEDS: Vancomycin 1,500 MG in D5% in Water 250 ML IVPB SCH ×2 (00:48→14:04)
[2016-07-30] MEDS: *HR* HYDROmorphone (PF) 1 MG/ML SYRINGE IVP PRN ×4 (04:21→21:20)
[2016-07-30] MEDS: Acetaminophen 325 MG TABLET PO SCH ×4 (05:56→15:59)
[2016-07-30] MEDS: *HR* OxyCODONE ER (12 HR) 10 MG TABLET PO SCH ×2 (05:56→17:18)
[2016-07-30] MEDS: *HR* Heparin 5,000 UNIT/ML VIAL SQ SCH ×2 (05:56→17:23)
[2016-07-30] MEDS: Ampicillin/Sulbactam 3,000 MG in 0.9 % Sodium Chloride Mini Bag 100 ML IVPB SCH ×4 (05:57→23:15)
[2016-07-30 07:08] LABS: Hematocrit 33.1 % (37.5-50.1); Mean Corpuscular Hemoglobin 26.2 pg (28.0-33.3); Mean Corpuscular Volume 81.7 fL (83.0-100.0); Platelet Count 145 K/mcL (140-400); Red Blood Count 4.05 M/mcL (4.19-5.50); Red Cell Distribution Width 16.1 % (11.5-14.5)
[2016-07-30 07:31] LABS: BUN/Creatinine Ratio 13 (6-26); Blood Urea Nitrogen 10 mg/dL (8-26); Calcium 8.5 mg/dL (8.6-10.8); Carbon Dioxide 24 mEq/L (19-29); Chloride 107 mEq/L (98-109); Glucose 121 mg/dL (70-99); Osmolality,Calculated 284 (280-300); Potassium 3.8 mEq/L (3.5-4.5); Sodium 137 mEq/L (136-145); eGFR For African Americans > 60 (> 60); eGFR For Non-African Americans > 60 (> 60)
[2016-07-30] MEDS: Budesonide/Formoterol 160/4.5 MDI IH SCH ×2 (08:13→21:30)
[2016-07-30 08:14] LABS: Hemoglobin 10.6 g/dL (12.9-16.9)
[2016-07-30 09:09] LABS: Lymphocytes # 0.8 K/mcL (0.6-4.6); Monocytes # 0.7 K/mcL (0.0-1.3); Neutrophils # 5.3 K/mcL (1.6-8.9)
[2016-07-30] MEDS: Ondansetron ODT 4 MG TAB.RAPDIS SL PRN (09:09)
[2016-07-30 09:10] LABS: Anisocytosis 1+ (Not Present); Macrocytosis Present (Not Present); Microcytosis Present (Not Present)
[2016-07-30] MEDS: Pregabalin 75 MG CAPSULE PO SCH ×2 (09:10→21:16)
[2016-07-30] MEDS: tiZANidine 4 MG TABLET PO SCH ×3 (09:11→21:16)
[2016-07-30] MEDS: Cholecalciferol (D-3) 1,000 UNIT TABLET PO SCH (09:11)
[2016-07-30] MEDS: hydrOXYzine pamoate 25 MG CAPSULE PO SCH ×3 (09:11→21:16)
[2016-07-30] MEDS: Furosemide 20 MG TABLET PO SCH ×2 (09:12→15:59)
[2016-07-30] MEDS: ARIPiprazole 5 MG TABLET PO SCH (09:12)
[2016-07-30] MEDS: traMADol 50 MG TABLET PO PRN (14:05)
--- NOTE | 2016-07-30 16:08 | Internal Med Progress Note ---
Date of Encounter: 07/30/16 Time of Encounter: 13:00 - Assessment and plan (1) Sepsis Current Visit: Yes Status: Resolved Assessment and plan: Improving with IV abx. Continue current meds for now. Blood cx are negative so far. Will repeat if he developed fever. Qualifiers: Sepsis type: sepsis due to unspecified organism Qualified Code(s): A41.9 - Sepsis, unspecified organism (2) Cellulitis Current Visit: Yes Status: Acute Assessment and plan: Blood cx negative thus far. Slowly improving. Qualifiers: Site of cellulitis: extremity Site of cellulitis of extremity: lower extremity Laterality: left Qualified Code(s): L03.116 - Cellulitis of left lower limb (3) COPD (chronic obstructive pulmonary disease) Current Visit: Yes Status: Chronic Assessment and plan: Not currently in exacerbation Continue with supplemental oxygen and duonebs, and Symbicort Qualifiers: COPD type: emphysema Emphysema type: panlobular Qualified Code(s): J43.1 - Panlobular emphysema (4) Chronic pain Current Visit: Yes Status: Acute Assessment and plan: Continue pain meds as at home or equivalent. Qualifiers: Chronic pain type: chronic pain syndrome Qualified Code(s): G89.4 - Chronic pain syndrome (5) Bipolar disorder Current Visit: No Status: Chronic Assessment and plan: Currently without acute issue. Qualifiers: Active/Remission status: in remission of unspecified degree Qualified Code( s): F31.70 - Bipolar disorder, currently in remission, most recent episode unspecified (6) Morbid obesity with BMI of 40.0-44.9, adult Current Visit: No Status: Chronic (7) Nicotine dependence with nicotine-induced disorder Current Visit: No Status: Chronic Qualifiers: Nicotine product type: cigarettes Qualified Code(s): F17.219 - Nicotine dependence, cigarettes, with unspecified nicotine-induced disorders (8) Dehydration Current Visit: Yes Status: Resolved - Subjective Interval history: Mr Aviles is currently admitted for acute cellulitis of his LLE. He remains high risk due to need for IV abx and pain medication and severity of the infection. Mr. Aviles has less pain today. Erythema seems to be slowly improving. Wants to be back on home pain medications. Fever seems to have improved overnight. Has been on scheduled acetaminophen. No diarrhea. - Constitutional Vitals: Temp Pulse Resp BP Pulse Ox 97.4 F L 78 16 117/63 97 07/30/16 15:31 07/30/16 15:31 07/30/16 15:31 07/30/16 15:31 07/30/16 15:31 General appearance: Present: A&O X 3, no acute distress, answers questions appropriately - Head Head exam: Present: normocephalic - Eye Eye exam: Present: EOMI, conjuntiva pink - ENT ENT exam: Present: mucous membranes moist - Respiratory Respiratory exam: Present: decreased breath sounds, CTAB - Cardiovascular Cardiovascular exam: Present: RRR. Absent: tachycardia - GI/Abdominal GI/Abdominal exam: Present: soft. Absent: mass, tenderness - Extremities Exam Extremities exam: Present: warm. Absent: pedal edema Additional comments: LLE with improving erythema but still significant anterior tibial area. Adenopathy present in groin. - Neurological Exam Neurological exam: Present: alert, oriented X3, no focal deficits - Psychiatric Psychiatric exam: Present: normal affect, normal mood - Skin Skin exam: Present: erythema, warm. Absent: rash Internal Medicine: Result - Labs CBC & Chem 7: 07/30/16 06:34 07/30/16 06:34 Labs: Short CBC 07/30/16 Range/Units 06:34 WBC 6.8 (4.3-11.1) K/mcL Hgb 10.6 L D (12.9-16.9) g/dL Hct 33.1 L (37.5-50.1) % Plt Count 145 (140-400) K/mcL Neutrophils # 5.3 (1.6-8.9) K/mcL BMP 07/30/16 06:34 Sodium 137 Potassium 3.8 Chloride 107 Carbon Dioxide 24 BUN 10 Creatinine 0.77 Glucose 121 H Calcium 8.5 L - ABG Interpretation ABG results: PT/INR, D-dimer PT 12.0 Seconds (9.4-12.1) 07/28/16 20:16 Consult Discharge Plan - Plan [facility]: [facility] [Primary Care Provider] -
[2016-07-30] MEDS: Acetaminophen 325 MG TABLET PO PRN (23:20)
[2016-07-31] MEDS: Vancomycin 2,000 MG in D5% in Water 500 ML IVPB SCH ×2 (02:46→14:43)
[2016-07-31] MEDS: Ondansetron ODT 4 MG TAB.RAPDIS SL PRN ×2 (02:49→22:54)
[2016-07-31] MEDS: *HR* HYDROmorphone (PF) 1 MG/ML SYRINGE IVP PRN ×4 (02:49→22:50)
[2016-07-31 05:42] LABS: BUN/Creatinine Ratio 14 (6-26); Blood Urea Nitrogen 11 mg/dL (8-26); Calcium 8.9 mg/dL (8.6-10.8); Carbon Dioxide 25 mEq/L (19-29); Chloride 107 mEq/L (98-109); Glucose 147 mg/dL (70-99); Magnesium 1.8 mg/dL (1.6-2.6); Osmolality,Calculated 288 (280-300); Potassium 4.2 mEq/L (3.5-4.5); Sodium 138 mEq/L (136-145); eGFR For African Americans > 60 (> 60); eGFR For Non-African Americans > 60 (> 60)
[2016-07-31] MEDS: *HR* Heparin 5,000 UNIT/ML VIAL SQ SCH ×2 (06:01→17:23)
[2016-07-31] MEDS: *HR* OxyCODONE ER (12 HR) 10 MG TABLET PO SCH ×2 (06:01→17:22)
[2016-07-31] MEDS: Ampicillin/Sulbactam 3,000 MG in 0.9 % Sodium Chloride Mini Bag 100 ML IVPB SCH ×3 (06:42→17:22)
[2016-07-31] MEDS: hydrOXYzine pamoate 25 MG CAPSULE PO SCH ×3 (09:32→20:26)
[2016-07-31] MEDS: Furosemide 20 MG TABLET PO SCH ×2 (09:32→17:21)
[2016-07-31] MEDS: tiZANidine 4 MG TABLET PO SCH ×3 (09:32→20:26)
[2016-07-31] MEDS: ARIPiprazole 5 MG TABLET PO SCH (09:33)
[2016-07-31] MEDS: Cholecalciferol (D-3) 1,000 UNIT TABLET PO SCH (09:33)
[2016-07-31] MEDS: Pregabalin 75 MG CAPSULE PO SCH ×2 (09:33→20:26)
[2016-07-31] MEDS: Budesonide/Formoterol 160/4.5 MDI IH SCH ×2 (10:31→22:33)
--- NOTE | 2016-07-31 13:18 | Internal Med Progress Note ---
<Conor Brooke - Last Filed: 07/31/16 15:50> Date of Encounter: 07/31/16 Time of Encounter: 13:18 - Assessment and plan (1) Cellulitis Current Visit: Yes Status: Acute Assessment and plan: Blood cx negative thus far. will check crp tomorrow cont unasyn day 3 and vanc day 3, patient is improvin clinically, no systemic symptoms LLE erythema, warmth and pain still present but improved shrunk compared to demarcation regions depending on clinical course and response of disease will treat from 5-14 days will perform mrsa screen Qualifiers: Site of cellulitis: extremity Site of cellulitis of extremity: lower extremity Laterality: left Qualified Code(s): L03.116 - Cellulitis of left lower limb (2) Sepsis Current Visit: Yes Status: Resolved Qualifiers: Sepsis type: sepsis due to unspecified organism Qualified Code(s): A41.9 - Sepsis, unspecified organism (3) Chronic pain Current Visit: Yes Status: Acute Assessment and plan: Continue pain meds as at home or equivalent. Qualifiers: Chronic pain type: chronic pain syndrome Qualified Code(s): G89.4 - Chronic pain syndrome (4) DVT prophylaxis Current Visit: Yes Status: Acute Assessment and plan: Heparin 5000 units BID (5) Morbid obesity with BMI of 40.0-44.9, adult Current Visit: No Status: Chronic - Time Spent With Patient 25 - 35 minutes - Constitutional Vitals: Temp Pulse Resp BP Pulse Ox 97.7 F 78 15 121/75 95 07/31/16 11:30 07/31/16 11:30 07/31/16 11:30 07/31/16 11:30 07/31/16 11:30 General appearance: Present: A&O X 3, no acute distress, answers questions appropriately - Head Head exam: Present: atraumatic, normocephalic - Eye Eye exam: Present: PERRL, conjuntiva pink, sclera anicteric Pupils: Present: PERRL - Neck Neck exam general surgery: Present: supple, trachea midline. Absent: lymphadenopathy - Respiratory Respiratory exam: Present: CTAB. Absent: accessory muscle use, rales, rhonchi, wheezes - Cardiovascular Cardiovascular exam: Present: RRR, +S1, +S2. Absent: rubs - GI/Abdominal GI/Abdominal exam: Present: normal bowel sounds, soft, no peritoneal signs. Absent: distended, tenderness - Extremities Exam Extremities exam: Present: warm, radial pulses palpable and symetrical Additional comments: LLE demarcation with pen cellulitis region has shrunk, still erythematous, warm and some pain to palpation circumferential - Neurological Exam Neurological exam: Present: CN II-XII intact, oriented X3, no focal deficits - Skin Skin exam: Present: dry Internal Medicine: Result - Labs CBC & Chem 7: 07/30/16 06:34 07/31/16 04:48 Labs: BMP 07/31/16 04:48 Sodium 138 Potassium 4.2 Chloride 107 Carbon Dioxide 25 BUN 11 Creatinine 0.81 Glucose 147 H Calcium 8.9 - ABG Interpretation ABG results: PT/INR, D-dimer PT 12.0 Seconds (9.4-12.1) 07/28/16 20:16 Consult Discharge Plan - Plan [facility]errals: [facility] [Primary Care Provider] - <Jaswinder Garvin - Last Filed: 07/31/16 17:51> Date of Encounter: 07/31/16 - Assessment and plan (1) Cellulitis Current Visit: Yes Status: Acute Qualifiers: Site of cellulitis: extremity Site of cellulitis of extremity: lower extremity Laterality: left Qualified Code(s): L03.116 - Cellulitis of left lower limb (2) Ingrown left big toenail Current Visit: Yes Status: Acute Assessment and plan: Will need podiatry to see as was most likely source of bacteria to leg. (3) COPD (chronic obstructive pulmonary disease) Current Visit: Yes Status: Chronic Qualifiers: COPD type: emphysema Emphysema type: panlobular Qualified Code(s): J43.1 - Panlobular emphysema (4) Chronic pain Current Visit: Yes Status: Acute Qualifiers: Chronic pain type: chronic pain syndrome Qualified Code(s): G89.4 - Chronic pain syndrome (5) Bipolar disorder Current Visit: No Status: Chronic Qualifiers: Active/Remission status: in remission of unspecified degree Qualified Code( s): F31.70 - Bipolar disorder, currently in remission, most recent episode unspecified (6) Morbid obesity with BMI of 40.0-44.9, adult Current Visit: No Status: Chronic (7) Nicotine dependence with nicotine-induced disorder Current Visit: No Status: Chronic Qualifiers: Nicotine product type: cigarettes Qualified Code(s): F17.219 - Nicotine dependence, cigarettes, with unspecified nicotine-induced disorders (8) Dehydration Current Visit: Yes Status: Resolved - Constitutional Vitals: Temp Pulse Resp BP Pulse Ox 98.5 F 73 15 109/56 96 07/31/16 15:00 07/31/16 15:00 07/31/16 15:00 07/31/16 15:00 07/31/16 15:00 Internal Medicine: Result - Labs CBC & Chem 7: 07/30/16 06:34 07/31/16 04:48 Labs: BMP 07/31/16 04:48 Sodium 138 Potassium 4.2 Chloride 107 Carbon Dioxide 25 BUN 11 Creatinine 0.81 Glucose 147 H Calcium 8.9 - ABG Interpretation ABG results: PT/INR, D-dimer PT 12.0 Seconds (9.4-12.1) 07/28/16 20:16 - Attending Attestation I examined this patient and my medical decision-making was reviewed with the Resident Physician. I agree with the documented findings, disposition and treatment plan as described except to the extent set forth below. Mr. Aviles is currently admitted for cellulitis LLE. He remains moderate to high risk due to potential of worsening infection and sepsis. Mr. Aviles has less pain today. He relayed about a recent ingrown toenail on the same leg. It has been draining over last few weeks. Has appt at [facility] on . Slept OK. PO pain meds ok now. Went over 9 hours between Dilaudid doses. Exam Alert. Pleasant Heart reg Lungs clear LLE with erythema continuing to recede. Ingrown great toe on Left Edema present I/P 1. Acute cellulitis LLE - most likely staph or strep. Seems to be responding to IV abx as ordered. Will continue today. 2. Ingrown toenail - plan consult to podiatry tomorrow. 3. Chronic pain/back pain. Further diagnoses and plan as above.
[2016-07-31] MEDS: traMADol 50 MG TABLET PO PRN (20:26)
[2016-08-01] MEDS: Ampicillin/Sulbactam 3,000 MG in 0.9 % Sodium Chloride Mini Bag 100 ML IVPB SCH ×5 (00:17→23:46)
[2016-08-01] MEDS: Acetaminophen 325 MG TABLET PO PRN ×2 (01:03→20:23)
[2016-08-01] MEDS: Vancomycin 2,000 MG in D5% in Water 500 ML IVPB SCH ×2 (01:04→13:52)
[2016-08-01] MEDS: *HR* HYDROmorphone (PF) 1 MG/ML SYRINGE IVP PRN ×4 (05:22→20:23)
[2016-08-01] MEDS: *HR* OxyCODONE ER (12 HR) 10 MG TABLET PO SCH ×2 (06:55→16:55)
[2016-08-01] MEDS: *HR* Heparin 5,000 UNIT/ML VIAL SQ SCH ×2 (06:56→16:55)
[2016-08-01 07:03] LABS: BUN/Creatinine Ratio 9 (6-26); Blood Urea Nitrogen 7 mg/dL (8-26); C-Reactive Protein 157 mg/L (Less than 5); Calcium 8.9 mg/dL (8.6-10.8); Carbon Dioxide 15 mEq/L (19-29); Chloride 110 mEq/L (98-109); Glucose 149 mg/dL (70-99); Osmolality,Calculated 289 (280-300); Sodium 139 mEq/L (136-145); eGFR For African Americans > 60 (> 60); eGFR For Non-African Americans > 60 (> 60)
[2016-08-01 07:07] LABS: Potassium 4.7 mEq/L (3.5-4.5)
[2016-08-01 08:30] LABS: Basophils % 0.3 %; Eosinophils # 0.1 K/mcL (0.0-0.6); Eosinophils % 1.9 %; Hemoglobin 11.2 g/dL (12.9-16.9); Immature Granulocytes % 0.7 % (0-4); Immature Platelets 3.9 % (1.1-6.1); Lymphocytes # 1.2 K/mcL (0.6-4.6); Lymphocytes % 21.3 %; Mean Corpuscular Hemoglobin 25.9 pg (28.0-33.3); Monocytes # 0.6 K/mcL (0.0-1.3); Monocytes % 10.1 %; Neutrophils # 3.8 K/mcL (1.6-8.9); Platelet Count 204 K/mcL (140-400); Red Blood Count 4.32 M/mcL (4.19-5.50); Red Cell Distribution Width 15.7 % (11.5-14.5); Segmented Neutrophils % 65.7 %
[2016-08-01] MEDS: Cholecalciferol (D-3) 1,000 UNIT TABLET PO SCH (09:19)
[2016-08-01] MEDS: ARIPiprazole 5 MG TABLET PO SCH (09:19)
[2016-08-01] MEDS: Furosemide 20 MG TABLET PO SCH ×2 (09:20→20:03)
[2016-08-01] MEDS: Pregabalin 75 MG CAPSULE PO SCH ×2 (09:20→20:23)
[2016-08-01] MEDS: tiZANidine 4 MG TABLET PO SCH ×3 (09:20→20:23)
[2016-08-01] MEDS: hydrOXYzine pamoate 25 MG CAPSULE PO SCH ×3 (09:21→20:23)
[2016-08-01] MEDS: Budesonide/Formoterol 160/4.5 MDI IH SCH ×2 (10:14→21:16)
[2016-08-01] MEDS: traMADol 50 MG TABLET PO PRN ×2 (11:44→23:47)
--- NOTE | 2016-08-01 11:52 | Internal Med Progress Note ---
<Conor Brooke - Last Filed: 08/01/16 15:58> Date of Encounter: 08/01/16 Time of Encounter: 15:58 - Assessment and plan (1) Cellulitis Current Visit: Yes Status: Acute Assessment and plan: overall slightly worsened in terms of pain, but patient afebrile over night. there was slight increase in erythema towards the dorsal aspect of L foot. blood cx still negative. crp will recheck again tomorrow. cont unasyn day 4 and vanc day 4 - we need to get vanc trough levels 10-15 for cellulitis per pharmacy depending on clinical course and response of disease will treat from 5-14 days ordered mrsa screen yesterday consult to podiatry placed placed for R toe as it is possible source Qualifiers: Site of cellulitis: extremity Site of cellulitis of extremity: lower extremity Laterality: left Qualified Code(s): L03.116 - Cellulitis of left lower limb (2) Sepsis Current Visit: Yes Status: Resolved Assessment and plan: Improving with IV abx. Continue current meds for now. Blood cx are negative so far. Will repeat if he developed fever. Qualifiers: Sepsis type: sepsis due to unspecified organism Qualified Code(s): A41.9 - Sepsis, unspecified organism (3) Chronic pain Current Visit: Yes Status: Acute Assessment and plan: Continue pain meds as at home or equivalent. Qualifiers: Chronic pain type: chronic pain syndrome Qualified Code(s): G89.4 - Chronic pain syndrome (4) Morbid obesity with BMI of 40.0-44.9, adult Current Visit: No Status: Chronic (5) DVT prophylaxis Current Visit: Yes Status: Acute Assessment and plan: Heparin 5000 units BID - Time Spent With Patient 25 - 35 minutes - Subjective Interval history: patient doing OK, no fevers which is better than yesterday when he had subjective fever. denies n/v/d. denies sob/cp. his LLE cellulitis site has slightly more pain he states. - Constitutional Vitals: Temp Pulse Resp BP Pulse Ox 98.1 F 71 16 161/86 95 08/01/16 11:37 08/01/16 11:37 08/01/16 11:37 08/01/16 11:37 08/01/16 11:37 Exam: General appearance: Present: A&O X 3, no acute distress, answers questions appropriately - Eye Eye exam: Present: PERRL, conjuntiva pink, sclera anicteric Pupils: Present: PERRL - Neck Neck exam general surgery: Present: supple, trachea midline. Absent: lymphadenopathy - Respiratory Respiratory exam: Present: CTAB. Absent: accessory muscle use, rales, rhonchi, wheezes - Cardiovascular Cardiovascular exam: Present: RRR, +S1, +S2. Absent: rubs - GI/Abdominal GI/Abdominal exam: Present: normal bowel sounds, soft, no peritoneal signs. Absent: distended, tenderness - Extremities Exam Extremities exam: Present: warm, radial pulses palpable and symetrical Additional comments: LLE demarcation with pen cellulitis region is still decreased, but slight erythema creeping down towards L foot. Still tenderness to palpation. overall edema is stable. Pain is slightly increased. R toe abnormal - Skin Skin exam: Present: dry Internal Medicine: Result - Labs CBC & Chem 7: 08/01/16 08:12 08/01/16 04:56 Labs: Short CBC 08/01/16 Range/Units 08:12 WBC 5.7 (4.3-11.1) K/mcL Hgb 11.2 L (12.9-16.9) g/dL Hct 35.0 L (37.5-50.1) % Plt Count 204 (140-400) K/mcL Neutrophils # 3.8 (1.6-8.9) K/mcL BMP 08/01/16 04:56 Sodium 139 Potassium 4.7 H Chloride 110 H Carbon Dioxide 15 L BUN 7 L Creatinine 0.77 Glucose 149 H Calcium 8.9 - ABG Interpretation ABG results: PT/INR, D-dimer PT 12.0 Seconds (9.4-12.1) 07/28/16 20:16 Consult Discharge Plan - Plan [facility] Care Provider[facility] - <Jaswinder Garvin - Last Filed: 08/01/16 19:03> Date of Encounter: 08/01/16 - Assessment and plan (1) Cellulitis Current Visit: Yes Status: Acute Qualifiers: Site of cellulitis: extremity Site of cellulitis of extremity: lower extremity Laterality: left Qualified Code(s): L03.116 - Cellulitis of left lower limb (2) Ingrown left big toenail Current Visit: Yes Status: Acute (3) COPD (chronic obstructive pulmonary disease) Current Visit: Yes Status: Chronic Qualifiers: COPD type: emphysema Emphysema type: panlobular Qualified Code(s): J43.1 - Panlobular emphysema (4) Chronic pain Current Visit: Yes Status: Acute Qualifiers: Chronic pain type: chronic pain syndrome Qualified Code(s): G89.4 - Chronic pain syndrome (5) Bipolar disorder Current Visit: No Status: Chronic Qualifiers: Active/Remission status: in remission of unspecified degree Qualified Code( s): F31.70 - Bipolar disorder, currently in remission, most recent episode unspecified (6) Morbid obesity with BMI of 40.0-44.9, adult Current Visit: No Status: Chronic (7) Nicotine dependence with nicotine-induced disorder Current Visit: No Status: Chronic Qualifiers: Nicotine product type: cigarettes Qualified Code(s): F17.219 - Nicotine dependence, cigarettes, with unspecified nicotine-induced disorders (8) Dehydration Current Visit: Yes Status: Resolved - Constitutional Vitals: Temp Pulse Resp BP Pulse Ox 98.1 F 92 18 126/71 93 L 08/01/16 11:37 08/01/16 15:23 08/01/16 15:23 08/01/16 15:23 08/01/16 15:23 Internal Medicine: Result - Labs CBC & Chem 7: 08/01/16 08:12 08/01/16 04:56 Labs: Short CBC 08/01/16 Range/Units 08:12 WBC 5.7 (4.3-11.1) K/mcL Hgb 11.2 L (12.9-16.9) g/dL Hct 35.0 L (37.5-50.1) % Plt Count 204 (140-400) K/mcL Neutrophils # 3.8 (1.6-8.9) K/mcL BMP 08/01/16 04:56 Sodium 139 Potassium 4.7 H Chloride 110 H Carbon Dioxide 15 L BUN 7 L Creatinine 0.77 Glucose 149 H Calcium 8.9 - ABG Interpretation ABG results: PT/INR, D-dimer PT 12.0 Seconds (9.4-12.1) 07/28/16 20:16 - Attending Attestation I examined this patient and my medical decision-making was reviewed with the Resident Physician. I agree with the documented findings, disposition and treatment plan as described except to the extent set forth below. Mr. Aviles is currently admitted for acute cellulitis LLE. He remains mod to high risk due to potential of worsening infection and sepsis. Mr. Aviles seems to be having increased erthyema today. It was improving but now redder on top of foot and side of leg. No fever or chills. WBC is normal now. No GI symptoms. Exam Alert. Mild distress Heart reg No wheeze L leg with increased erythema across foot. Warm to touch. I/P 1. Cellulitis LLE - I am going to add clindamycin at this time as it is taking a bit to get therapeutic levels of Vanc and he seems to be worsening today. Can reassess and stop if improves. Further diagnoses and plan as above.
[2016-08-01] MEDS ORDERED: Lidocaine 1% 20 ML MDV ID STA (13:44)
[2016-08-01] MEDS ORDERED: Clindamycin 600 MG/50 ML 600 MG/50 ML IV.SOLN IVPB SCH (16:00)
[2016-08-02] MEDS ORDERED: Clindamycin 600 MG/50 ML 600 MG/50 ML IV.SOLN IVPB SCH
[2016-08-02 01:02] LABS: Basophils % 0.5 %; Eosinophils # 0.2 K/mcL (0.0-0.6); Eosinophils % 3.1 %; Hematocrit 38.8 % (37.5-50.1); Hemoglobin 12.3 g/dL (12.9-16.9); Immature Granulocytes % 1.7 % (0-4); Lymphocytes # 1.5 K/mcL (0.6-4.6); Lymphocytes % 25.9 %; Mean Corpuscular HGB Conc 31.7 g/dL (31.6-35.5); Mean Corpuscular Hemoglobin 25.7 pg (28.0-33.3); Mean Corpuscular Volume 81.2 fL (83.0-100.0); Mean Platelet Volume 9.6 fL (9.4-12.4); Monocytes # 0.5 K/mcL (0.0-1.3); Neutrophils # 3.5 K/mcL (1.6-8.9); Platelet Count 217 K/mcL (140-400); Red Blood Count 4.78 M/mcL (4.19-5.50); Red Cell Distribution Width 15.4 % (11.5-14.5); Segmented Neutrophils % 59.8 %
[2016-08-02 01:12] LABS: BUN/Creatinine Ratio 9 (6-26); Blood Urea Nitrogen 7 mg/dL (8-26); Calcium 9.7 mg/dL (8.6-10.8); Carbon Dioxide 28 mEq/L (19-29); Chloride 103 mEq/L (98-109); Glucose 98 mg/dL (70-99); Osmolality,Calculated 288 (280-300); Potassium 4.1 mEq/L (3.5-4.5); Sodium 140 mEq/L (136-145); eGFR For African Americans > 60 (> 60); eGFR For Non-African Americans > 60 (> 60)
[2016-08-02] MEDS: Vancomycin 2,000 MG in D5% in Water 500 ML IVPB SCH ×2 (02:02→13:43)
[2016-08-02] MEDS: Clindamycin 600 MG/50 ML 600 MG/50 ML IV.SOLN IVPB SCH ×3 (02:02→17:53)
[2016-08-02] MEDS: *HR* HYDROmorphone (PF) 1 MG/ML SYRINGE IVP PRN ×4 (04:18→21:10)
[2016-08-02] MEDS: Ampicillin/Sulbactam 3,000 MG in 0.9 % Sodium Chloride Mini Bag 100 ML IVPB SCH ×4 (06:09→23:49)
[2016-08-02] MEDS: *HR* Heparin 5,000 UNIT/ML VIAL SQ SCH ×2 (06:09→17:53)
[2016-08-02] MEDS: *HR* OxyCODONE ER (12 HR) 10 MG TABLET PO SCH ×2 (06:09→17:53)
--- NOTE | 2016-08-02 06:43 | Podiatry Consult Note ---
Date of Encounter: 08/01/16 Time of Encounter: 13:15 Assessment and Plan (1) Ingrown left big toenail Current visit: Yes Status: Acute Assessment: #1 ingrown nail lateral border left great toe without purulent drainage that is obvious clinical exam #2 cellulitis of left leg/lower extremity #3 multiple comorbidities as outlined in history Plan: #1 we will perform bedside partial nail avulsion under local anesthetic within the next 24 hrs. we discussed the risks versus benefits as well as alternatives to bedside procedure. Patient is stable and is amenable. We will arrange for instrumentation. History of Present Illness Chief complaint: Patient admitted for cellulitis of left leg. History of ingrown nail left HPI: Mr. Aviles is a 41 year old male, admitted and being managed with intravenous antibiotics for cellulitis of the left leg. Patient does have a history of ingrown nail left great toe lateral border but without obvious cellulitis or lymphangitis extending from the toe itself. This could possibly be the nidus of the infection/cellulitis of the leg. Patient presently has no significant pain with the left great toe. It is tender to touch but not painful. Past Med Surg Social Fam HX - Past Medical History Medical history: arthritis, cancer (testicular cancer s/p orchiectomy and retroperitoneal lymphadenectomy 2005), COPD, GERD, hyperlipidemia, hypertension , other (spinal stenosis with right foot drop, chronic pain) Psychiatric history: anxiety, bipolar, depression - Past Surgical History Surgical History: cancer surgery (orchiectomy and retroperitoneal lymphadenectomy), herniorrhaphy (right inguinal), orthopedic, other, other ( spinal stimulator) - Social History Smoking Status: Current every day smoker (quit cigarettes 3 weeks ago, now vapes ) Smokeless Tobacco Status: No Alcohol use: rarely Drug use: none - Family History Mother Living Status: Still Living Hx Family Cardiac Disorders: Yes Hx Family Respiratory Disorders: No Hx Family Cancer: Yes Hx Family GI Disorders: No Hx Family Endocrine Disorder: No Hx Family Neuromuscular Disorders: No Hx Family Neurologic Disorders: No Hx Family HEENT Disorders: No Hx Family Autoimmune Disorders: No Medications and Allergies Aripiprazole [Abilify] 10 mg PO DAILY 02/06/16 [History] Atorvastatin [Lipitor] 20 mg PO DAILY 02/06/16 [History] Furosemide [Lasix] 20 mg PO BID 02/06/16 [History] HydrOXYzine Pamoate 25 mg PO TID 02/06/16 [History] Cholecalciferol (D-3) [Vitamin D] 1,000 unit PO DAILY 05/12/16 [History] Losartan [Cozaar] 25 mg PO DAILY 05/12/16 [History] Metoprolol [Lopressor] 25 mg PO BID 05/12/16 [History] Potassium Chloride [K-Tab ER] 10 meq PO DAILY 05/12/16 [History] Pregabalin [Lyrica] 150 mg PO BID 05/12/16 [History] Tizanidine HCl [Zanaflex] 4 mg PO TID 05/12/16 [History] TraMADol [Ultram] 100 mg PO BID PRN 05/12/16 [History] Oxymorphone HCl [Oxymorphone HCl ER] 20 mg PO BID 07/28/16 [History] Allergies amitriptyline [From Elavil] Allergy (Unknown, Verified 07/28/16 22:08) See Comments PATIENT UNSURE OF REACTIONS- LISTED ON [facility] divalproex sodium Allergy (Unknown, Verified 07/28/16 22:08) See Comments PATIENT UNSURE OF REACTIONS- LISTED ON [facility] ibuprofen [From Motrin] Allergy (Unknown, Verified 07/28/16 22:08) See Comments PATIENT UNSURE OF REACTIONS- LISTED ON [facility] CH[facility] [place] Allergy (Unknown, Verified 07/28/16 22:08) See Comments PATIENT UNSURE OF REACTIONS- LISTED ON [facility] lovastatin Allergy (Unknown, Verified 07/28/16 22:08) See Comments PATIENT UNSURE OF REACTIONS- LISTED ON [facility] mirtazapine Allergy (Unknown, Verified 07/28/16 22:08) See Comments PATIENT UNSURE OF REACTIONS- LISTED ON [facility] NSAIDS (Non-Steroidal Anti-Inflamma Allergy (Unknown, Verified 07/28/16 22:09) See Comments PATIENT UNSURE OF REACTIONS- LISTED ON [facility] quetiapine Allergy (Unknown, Verified 07/28/16 22:08) See Comments PATIENT UNSURE OF REACTIONS- LISTED ON [facility] simvastatin [From Zocor] Allergy (Unknown, Verified 07/28/16 22:08) See Comments PATIENT UNSURE OF REACTIONS- LISTED ON [facility] trazodone Allergy (Unknown, Verified 07/28/16 22:08) See Comments PATIENT UNSURE OF REACTIONS- LISTED ON [facility] Zolpidem Allergy (Unknown, Verified 07/28/16 22:08) See Comments PATIENT UNSURE OF REACTIONS- LISTED ON [facility] All Systems Reviewed: A 10-system review of systems was performed and is negative for pertinent findings except as documented above in the HPI. Physical Exam - Constitutional Vitals: Temp Pulse Resp BP Pulse Ox 98.0 F 77 18 159/91 98 08/02/16 04:00 08/02/16 04:00 08/02/16 04:00 08/02/16 04:00 08/02/16 04:00 - Ankle & Foot left Ankle appearance: swelling, erythema Foot appearance: swelling Foot swelling: dorsal, medial (Lower extremity exam vascular: Pedal pulses are palpable skin is warm to touch. Cyanosis of the digits. No pallor on elevation or rubor on dependency. There is global edema of the left foot and leg consistent with ongoing cellulitis. Neurologic: Grossly intact. DTRs Achilles and patellar equal and symmetrical. Intact epicritic sensation vibratory sensation. No evidence of loss of protective sensation. No spasticity. No rigidity. No flaccidity. Musculoskeletal: No gross defect or deformity adequate passive range of motion and active range of motion of the left foot and ankle and digits. It is restricted by the pain and swelling but nonetheless adequate. Integument patient has obvious cellulitis of the left leg pretibial region. He has ingrown nail lateral border left great toe. ) Results - Labs Result Diagrams: 08/02/16 00:34 08/02/16 00:34 Labs: Abnormal lab results Hgb 12.3 g/dL (12.9-16.9) L 08/02/16 00:34 MCV 81.2 fL (83.0-100.0) L 08/02/16 00:34 MCH 25.7 pg (28.0-33.3) L 08/02/16 00:34 RDW 15.4 % (11.5-14.5) H 08/02/16 00:34 Anisocytosis 1+ (Not Present) A 07/30/16 06:34 Microcytosis Present (Not Present) A 07/30/16 06:34 Macrocytosis Present (Not Present) A 07/30/16 06:34 BUN 7 mg/dL (8-26) L 08/02/16 00:34 C-Reactive Protein 157 mg/L (Less than 5) H 08/01/16 04:56 Globulin 3.7 g/dL (2.4-3.5) H 07/28/16 20:16 Albumin/Globulin Ratio 1.0 (1.1-2.2) L 07/28/16 20:16 Urine Microscopic RBC 3-5 per hpf (0-3) H 07/28/16 20:04 Ur Squamous Epith Cells Moderate per lpf (None-Few) H 07/28/16 20:04 H & H 08/01/16 08/02/16 Range/Units 08:12 00:34 Hgb 11.2 L 12.3 L (12.9-16.9) g/dL Hct 35.0 L 38.8 (37.5-50.1) % All other labs normal. Consult Discharge Plan - Plan [facility]errals: [facility] [Primary Care Provider] -
[2016-08-02] MEDS: Budesonide/Formoterol 160/4.5 MDI IH SCH ×2 (08:20→19:38)
[2016-08-02] MEDS: Cholecalciferol (D-3) 1,000 UNIT TABLET PO SCH (08:38)
[2016-08-02] MEDS: hydrOXYzine pamoate 25 MG CAPSULE PO SCH ×3 (08:38→21:03)
[2016-08-02] MEDS: ARIPiprazole 5 MG TABLET PO SCH (08:39)
[2016-08-02] MEDS: Furosemide 20 MG TABLET PO SCH ×2 (08:40→17:53)
[2016-08-02] MEDS: Pregabalin 75 MG CAPSULE PO SCH ×2 (08:40→21:03)
[2016-08-02] MEDS: tiZANidine 4 MG TABLET PO SCH ×3 (08:40→21:03)
--- NOTE | 2016-08-02 09:26 | Internal Med Progress Note ---
<Shadi Yusuf - Last Filed: 08/02/16 18:12> Date of Encounter: 08/02/16 Time of Encounter: 08:15 - Assessment and plan (1) Cellulitis Current Visit: Yes Status: Acute Assessment and plan: - LLE cellulitis affecting mostly lower [place]on. - Patient still complains of significant pain and erythema & swelling improves slowly. - Continue Unasyn (Day 6) & Vanco (Day 6, goal trough is ~15). Clindamycin was added. - Repeat venous US of LLE to rule out DVT. - Continue to monitor. Qualifiers: Site of cellulitis: extremity Site of cellulitis of extremity: lower extremity Laterality: left Qualified Code(s): L03.116 - Cellulitis of left lower limb (2) Sepsis Current Visit: Yes Status: Resolved Assessment and plan: - Resolved as patient has no more fever and WBC normalized. - Blood culture NGTD. - Continue IV abx. Qualifiers: Sepsis type: sepsis due to unspecified organism Qualified Code(s): A41.9 - Sepsis, unspecified organism (3) Ingrown left big toenail Current Visit: Yes Status: Acute Assessment and plan: - Podiatry on board and plan to perform bedside partial nail avulsion under local anesthetic within the next 24 hrs. Appreciate podiatry assistance on patient care. (4) Chronic pain Current Visit: Yes Status: Acute Assessment and plan: - Continue pain meds as home regiment or equivalent. Qualifiers: Chronic pain type: chronic pain syndrome Qualified Code(s): G89.4 - Chronic pain syndrome (5) DVT prophylaxis Current Visit: Yes Status: Acute Assessment and plan: - SQ Heparin - Subjective Interval history: No significant event noted overnight. Patient was seen and examined this morning. Patient complains of headache. He still has LLE pain and the swelling & redness improves slowly. Patient denies fever, chills, nausea, vomiting, chest pain. - Constitutional Vitals: Temp Pulse Resp BP Pulse Ox 98.2 F 68 18 168/96 97 08/02/16 07:29 08/02/16 07:29 08/02/16 08:20 08/02/16 07:29 08/02/16 08:20 General appearance: Present: A&O X 3, no acute distress, answers questions appropriately - Head Head exam: Present: atraumatic, normocephalic - Eye Eye exam: Present: PERRL, conjuntiva pink, sclera anicteric Pupils: Present: PERRL - Neck Neck exam general surgery: Present: supple, trachea midline. Absent: lymphadenopathy - Respiratory Respiratory exam: Present: CTAB. Absent: accessory muscle use, rales, rhonchi, wheezes - Cardiovascular Cardiovascular exam: Present: RRR, +S1, +S2. Absent: diastolic murmur, gallop, rubs, systolic murmur - GI/Abdominal GI/Abdominal exam: Present: normal bowel sounds, soft, no peritoneal signs. Absent: distended, tenderness - Extremities Exam Extremities exam: Present: pedal edema, warm, radial pulses palpable and symetrical. Absent: cyanotic Additional comments: LLE cellulitis erythema decreased based on pen marking. slight erythema down towards L foot. Still tenderness to palpation with some swelling. - Neurological Exam Neurological exam: Present: alert, oriented X3, no focal deficits. Absent: pronater drift, facial droop, speech deficit - Skin Skin exam: Present: dry, warm Internal Medicine: Result - Labs CBC & Chem 7: 08/02/16 00:34 08/02/16 00:34 Labs: Short CBC 08/02/16 Range/Units 00:34 WBC 5.9 (4.3-11.1) K/mcL Hgb 12.3 L (12.9-16.9) g/dL Hct 38.8 (37.5-50.1) % Plt Count 217 (140-400) K/mcL Neutrophils # 3.5 (1.6-8.9) K/mcL BMP 08/02/16 00:34 Sodium 140 Potassium 4.1 Chloride 103 Carbon Dioxide 28 BUN 7 L Creatinine 0.78 Glucose 98 Calcium 9.7 - ABG Interpretation ABG results: PT/INR, D-dimer PT 12.0 Seconds (9.4-12.1) 07/28/16 20:16 Consult Discharge Plan - Plan [facility]errals: [facility] [Primary Care Provider] - <Raji Salvador P - Last Filed: 08/02/16 18:57> Date of Encounter: 08/02/16 - Constitutional Vitals: Temp Pulse Resp BP Pulse Ox 98.5 F 90 20 170/88 96 08/02/16 17:01 08/02/16 17:01 08/02/16 17:01 08/02/16 17:01 08/02/16 17:01 Internal Medicine: Result - Labs CBC & Chem 7: 08/02/16 00:34 08/02/16 00:34 Labs: Short CBC 08/02/16 Range/Units 00:34 WBC 5.9 (4.3-11.1) K/mcL Hgb 12.3 L (12.9-16.9) g/dL Hct 38.8 (37.5-50.1) % Plt Count 217 (140-400) K/mcL Neutrophils # 3.5 (1.6-8.9) K/mcL BMP 08/02/16 00:34 Sodium 140 Potassium 4.1 Chloride 103 Carbon Dioxide 28 BUN 7 L Creatinine 0.78 Glucose 98 Calcium 9.7 - ABG Interpretation ABG results: PT/INR, D-dimer PT 12.0 Seconds (9.4-12.1) 07/28/16 20:16 - Attending Attestation I examined this patient and my medical decision-making was reviewed with the BOTTOM CRANE OPERATOR/PA/Advanced Practice Nurse/Resident Physician. I agree with the documented findings, disposition and treatment plan as described except to the extent set forth below.
[2016-08-02] MEDS: Acetaminophen 325 MG TABLET PO PRN (22:39)
[2016-08-03] MEDS: Clindamycin 600 MG/50 ML 600 MG/50 ML IV.SOLN IVPB SCH ×2 (00:54→09:01)
[2016-08-03] MEDS: Vancomycin 2,000 MG in D5% in Water 500 ML IVPB SCH ×2 (02:09→15:09)
[2016-08-03] MEDS: traMADol 50 MG TABLET PO PRN (02:16)
[2016-08-03] MEDS: *HR* HYDROmorphone (PF) 1 MG/ML SYRINGE IVP PRN ×4 (04:57→21:54)
[2016-08-03 05:18] LABS: Basophils % 0.4 %; Eosinophils # 0.2 K/mcL (0.0-0.6); Eosinophils % 2.7 %; Hematocrit 32.6 % (37.5-50.1); Immature Granulocytes % 3.2 % (0-4); Immature Platelets 3.5 % (1.1-6.1); Lymphocytes # 1.3 K/mcL (0.6-4.6); Lymphocytes % 22.8 %; Mean Corpuscular HGB Conc 32.5 g/dL (31.6-35.5); Mean Corpuscular Hemoglobin 25.7 pg (28.0-33.3); Mean Corpuscular Volume 79.1 fL (83.0-100.0); Mean Platelet Volume 9.5 fL (9.4-12.4); Monocytes # 0.6 K/mcL (0.0-1.3); Monocytes % 10.3 %; Neutrophils # 3.4 K/mcL (1.6-8.9); Platelet Count 297 K/mcL (140-400); Red Blood Count 4.12 M/mcL (4.19-5.50); Red Cell Distribution Width 14.9 % (11.5-14.5); Segmented Neutrophils % 60.6 %
[2016-08-03 05:21] LABS: Hemoglobin 10.6 g/dL (12.9-16.9)
[2016-08-03 05:32] LABS: BUN/Creatinine Ratio 12 (6-26); Blood Urea Nitrogen 9 mg/dL (8-26); Calcium 9.2 mg/dL (8.6-10.8); Carbon Dioxide 27 mEq/L (19-29); Chloride 103 mEq/L (98-109); Glucose 137 mg/dL (70-99); Osmolality,Calculated 287 (280-300); Sodium 138 mEq/L (136-145); eGFR For African Americans > 60 (> 60); eGFR For Non-African Americans > 60 (> 60)
[2016-08-03] MEDS: Ampicillin/Sulbactam 3,000 MG in 0.9 % Sodium Chloride Mini Bag 100 ML IVPB SCH ×4 (06:32→23:37)
[2016-08-03] MEDS: *HR* Heparin 5,000 UNIT/ML VIAL SQ SCH ×2 (06:33→17:41)
[2016-08-03] MEDS: *HR* OxyCODONE ER (12 HR) 10 MG TABLET PO SCH ×2 (06:33→17:41)
[2016-08-03] MEDS: Budesonide/Formoterol 160/4.5 MDI IH SCH ×2 (08:01→19:41)
[2016-08-03] MEDS: Pregabalin 75 MG CAPSULE PO SCH ×2 (09:01→21:52)
[2016-08-03] MEDS: tiZANidine 4 MG TABLET PO SCH ×3 (09:02→21:52)
[2016-08-03] MEDS: Furosemide 20 MG TABLET PO SCH ×2 (09:02→17:42)
[2016-08-03] MEDS: hydrOXYzine pamoate 25 MG CAPSULE PO SCH ×3 (09:02→21:52)
[2016-08-03] MEDS: Cholecalciferol (D-3) 1,000 UNIT TABLET PO SCH (09:04)
[2016-08-03] MEDS: ARIPiprazole 5 MG TABLET PO SCH (09:04)
--- NOTE | 2016-08-03 09:57 | Internal Med Progress Note ---
<Shadi Yusuf - Last Filed: 08/03/16 14:38> Date of Encounter: 08/03/16 Time of Encounter: 09:30 - Assessment and plan (1) Cellulitis Current Visit: Yes Status: Acute Assessment and plan: - LLE cellulitis affecting mostly lower [place]. - Improves as LLE pain, erythema & swelling decrease. - Repeat venous US of LLE found significant evidence of DVT. - Continue Unasyn (Day 7), Vanco (Day 7, goal trough is ~15), and Clindamycin ( Day 2). Plan to treat with Abx for 10-14 days. - Continue to monitor. Qualifiers: Site of cellulitis: extremity Site of cellulitis of extremity: lower extremity Laterality: left Qualified Code(s): L03.116 - Cellulitis of left lower limb (2) Sepsis Current Visit: Yes Status: Resolved Assessment and plan: - Resolved as patient has no more fever and WBC normalized. - Blood culture NGTD. - Continue abx. Qualifiers: Sepsis type: sepsis due to unspecified organism Qualified Code(s): A41.9 - Sepsis, unspecified organism (3) Ingrown left big toenail Current Visit: Yes Status: Acute Assessment and plan: - Podiatry on board and plan to perform bedside partial nail avulsion under local anesthetic. Appreciate podiatry assistance on patient care. (4) Chronic pain Current Visit: Yes Status: Acute Assessment and plan: - Continue pain meds as home regiment or equivalent. Qualifiers: Chronic pain type: chronic pain syndrome Qualified Code(s): G89.4 - Chronic pain syndrome (5) DVT prophylaxis Current Visit: Yes Status: Acute Assessment and plan: - SQ Heparin - Subjective Interval history: No significant event noted overnight. Patient was seen and examined this morning. Patient feels the LLE pain, swelling & redness get better. Patient denies fever, chills, nausea, vomiting, chest pain, abdominal pain. - Constitutional Vitals: Temp Pulse Resp BP Pulse Ox 97.3 F L 64 18 157/93 97 08/03/16 07:20 08/03/16 07:20 08/03/16 08:01 08/03/16 07:20 08/03/16 08:01 General appearance: Present: A&O X 3, no acute distress, answers questions appropriately - Head Head exam: Present: atraumatic, normocephalic - Eye Eye exam: Present: PERRL, conjuntiva pink, sclera anicteric Pupils: Present: PERRL - Neck Neck exam general surgery: Present: supple, trachea midline. Absent: lymphadenopathy - Respiratory Respiratory exam: Present: CTAB. Absent: accessory muscle use, rales, rhonchi, wheezes - Cardiovascular Cardiovascular exam: Present: RRR, +S1, +S2. Absent: diastolic murmur, gallop, rubs, systolic murmur - GI/Abdominal GI/Abdominal exam: Present: normal bowel sounds, soft, no peritoneal signs. Absent: distended, tenderness - Extremities Exam Extremities exam: Present: pedal edema, warm, radial pulses palpable and symetrical. Absent: calf tenderness, cyanotic Additional comments: LLE cellulitis swelling and erythema decreased in size. slight erythema down towards L foot. - Neurological Exam Neurological exam: Present: CN II-XII intact, oriented X3, no focal deficits. Absent: pronater drift, facial droop, speech deficit - Skin Skin exam: Present: dry, intact Internal Medicine: Result - Labs CBC & Chem 7: 08/03/16 04:52 08/03/16 04:52 Labs: Short CBC 08/03/16 Range/Units 04:52 WBC 5.7 (4.3-11.1) K/mcL Hgb 10.6 L D (12.9-16.9) g/dL Hct 32.6 L (37.5-50.1) % Plt Count 297 (140-400) K/mcL Neutrophils # 3.4 (1.6-8.9) K/mcL BMP 08/03/16 04:52 Sodium 138 Potassium 4.0 Chloride 103 Carbon Dioxide 27 BUN 9 Creatinine 0.73 Glucose 137 H Calcium 9.2 - ABG Interpretation ABG results: PT/INR, D-dimer PT 12.0 Seconds (9.4-12.1) 07/28/16 20:16 Consult Discharge Plan - Plan Referrals: [facility] [Primary Care Provider] - 08/17/16 2:15 pm <Raji Salvador - Last Filed: 08/03/16 18:42> Date of Encounter: 08/03/16 - Constitutional Vitals: Temp Pulse Resp BP Pulse Ox 97.9 F 76 18 151/87 95 01/04/17 15:19 08/03/16 15:19 08/03/16 15:19 08/03/16 15:19 08/03/16 15:19 Internal Medicine: Result - Labs CBC & Chem 7: 08/03/16 04:52 08/03/16 04:52 Labs: Short CBC 08/03/16 Range/Units 04:52 WBC 5.7 (4.3-11.1) K/mcL Hgb 10.6 L D (12.9-16.9) g/dL Hct 32.6 L (37.5-50.1) % Plt Count 297 (140-400) K/mcL Neutrophils # 3.4 (1.6-8.9) K/mcL BMP 08/03/16 04:52 Sodium 138 Potassium 4.0 Chloride 103 Carbon Dioxide 27 BUN 9 Creatinine 0.73 Glucose 137 H Calcium 9.2 - ABG Interpretation ABG results: PT/INR, D-dimer PT 12.0 Seconds (9.4-12.1) 07/28/16 20:16 - Attending Attestation I examined this patient and my medical decision-making was reviewed with the MATRIX INSPECTOR/PA/Advanced Practice Nurse/Resident Physician. I agree with the documented findings, disposition and treatment plan as described except to the extent set forth below.
[2016-08-03] MEDS: Acetaminophen 325 MG TABLET PO PRN ×2 (12:28→19:16)
--- NOTE | 2016-08-03 13:41 | Venous Imaging Report ---
LE Venous Duplex Patient Name:Leandro Aviles Order Number:[id number] Procedure Date:08/02/2016 Date:1975Age:41 yrs Gender:Male Location:[facility] Room #: [id number] Piper Helper:Debbie Odom Referring MD:Shadi Yusuf DO acid conditioning worker:None Reading MD:Vasyl Schultz MD Primary Indications:Worsening left foot swelling. R/O DVT Secondary Indications: Risk Factors Yes/No Anticoagulants Yes Impressions: lower extremity: normal exam.Left lower extremity: normal superficial and deep exam. Recommendations: After imaging the patient returned to their room. Findings Venous Duplex Results: Right: Venous imaging of the lower extremity reveals full patency and normal vessel compressibility of the right common femoral. Doppler signals in the evaluated veins were normal. Left: Venous imaging of the lower extremity reveals full patency and normal vessel compressibility of the left distal iliac, left common femoral, left superficial femoral, left popliteal, left posterior tibial, left peroneal, left great saphenous and left lesser saphenous. Doppler signals in the evaluated veins were normal. Prior Study: No prior study available for comparison. Lower Extremity Venous Duplex Side Vein Compress Spontaneous Flow Augment Diameter (cm) Depth (cm) Left Distal Iliac Normal Yes Phasic Yes Left Common Femoral Normal Yes Phasic Yes Left Superficial Femoral Normal Yes Phasic Yes Left Popliteal Normal Yes Phasic Yes Left Posterior Tibial Normal Yes Phasic Yes Left Peroneal Normal Yes Phasic Yes Left Great Saphenous Normal Yes Phasic Yes Left Lesser Saphenous Normal Yes Phasic Yes Right Common Femoral Normal Yes Phasic Yes Updated by Vasyl Schultz MD on 08/03/2016 1:34:33 PM electronically signed on 08/03/2016 1:34:44 PM with status of Final
[2016-08-04] MEDS: Vancomycin 2,000 MG in D5% in Water 500 ML IVPB SCH ×2 (02:04→13:56)
[2016-08-04] MEDS: *HR* HYDROmorphone (PF) 1 MG/ML SYRINGE IVP PRN ×3 (02:11→13:56)
[2016-08-04] MEDS: traMADol 50 MG TABLET PO PRN (04:31)
[2016-08-04] MEDS: Ampicillin/Sulbactam 3,000 MG in 0.9 % Sodium Chloride Mini Bag 100 ML IVPB SCH ×2 (05:30→12:19)
[2016-08-04] MEDS: *HR* OxyCODONE ER (12 HR) 10 MG TABLET PO SCH (05:30)
[2016-08-04] MEDS: *HR* Heparin 5,000 UNIT/ML VIAL SQ SCH (05:31)
[2016-08-04 06:00] LABS: Mean Corpuscular HGB Conc 32.6 g/dL (31.6-35.5); Mean Corpuscular Hemoglobin 25.7 pg (28.0-33.3); Mean Corpuscular Volume 78.8 fL (83.0-100.0); Mean Platelet Volume 9.3 fL (9.4-12.4); Platelet Count 336 K/mcL (140-400); Red Blood Count 4.82 M/mcL (4.19-5.50); Red Cell Distribution Width 14.8 % (11.5-14.5)
[2016-08-04 06:05] LABS: Hemoglobin 12.4 g/dL (12.9-16.9)
[2016-08-04 06:11] LABS: BUN/Creatinine Ratio 13 (6-26); Blood Urea Nitrogen 10 mg/dL (8-26); Calcium 9.6 mg/dL (8.6-10.8); Carbon Dioxide 27 mEq/L (19-29); Chloride 104 mEq/L (98-109); Glucose 131 mg/dL (70-99); Osmolality,Calculated 289 (280-300); Potassium 3.8 mEq/L (3.5-4.5); Sodium 139 mEq/L (136-145); eGFR For African Americans > 60 (> 60); eGFR For Non-African Americans > 60 (> 60)
[2016-08-04 06:25] LABS: Eosinophils # 0.3 K/mcL (0.0-0.6); Lymphocytes # 2.9 K/mcL (0.6-4.6); Monocytes # 0.1 K/mcL (0.0-1.3); Neutrophils # 3.9 K/mcL (1.6-8.9); Platelet Estimate Normal (Normal); Reactive Lymphocytes Present (Not Present)
[2016-08-04 06:26] LABS: Large Platelets Present (Not Present); Microcytosis Present (Not Present); Polychromasia 1+ (Not Present)
[2016-08-04] MEDS: Budesonide/Formoterol 160/4.5 MDI IH SCH (07:47)
[2016-08-04] MEDS: hydrOXYzine pamoate 25 MG CAPSULE PO SCH ×2 (09:02→13:56)
[2016-08-04] MEDS: ARIPiprazole 5 MG TABLET PO SCH (09:02)
[2016-08-04] MEDS: Cholecalciferol (D-3) 1,000 UNIT TABLET PO SCH (09:02)
[2016-08-04] MEDS: Furosemide 20 MG TABLET PO SCH (09:02)
[2016-08-04] MEDS: tiZANidine 4 MG TABLET PO SCH ×2 (09:02→13:56)
[2016-08-04] MEDS: Pregabalin 75 MG CAPSULE PO SCH (09:03)
--- NOTE | 2016-08-04 10:36 | Internal Med Progress Note ---
Date of Encounter: 08/04/16 Time of Encounter: 09:15 - Assessment and plan (1) Cellulitis Current Visit: Yes Status: Acute Qualifiers: Site of cellulitis: extremity Site of cellulitis of extremity: lower extremity Laterality: left Qualified Code(s): L03.116 - Cellulitis of left lower limb (2) Sepsis Current Visit: Yes Status: Resolved Qualifiers: Sepsis type: sepsis due to unspecified organism Qualified Code(s): A41.9 - Sepsis, unspecified organism (3) Ingrown left big toenail Current Visit: Yes Status: Acute (4) Chronic pain Current Visit: Yes Status: Acute Qualifiers: Chronic pain type: chronic pain syndrome Qualified Code(s): G89.4 - Chronic pain syndrome (5) DVT prophylaxis Current Visit: Yes Status: Acute - Subjective Interval history: No significant event noted overnight. Patient was seen and examined this morning. Patient feels the LLE pain, swelling & redness get better. Patient denies fever, chills, nausea, vomiting, chest pain, abdominal pain. - Constitutional Vitals: Temp Pulse Resp BP Pulse Ox 98.1 F 82 20 181/104 91 L 08/04/16 07:29 08/04/16 07:29 08/04/16 07:48 08/04/16 07:29 08/04/16 07:48 General appearance: Present: A&O X 3, no acute distress, answers questions appropriately Internal Medicine: Result - Labs CBC & Chem 7: 08/04/16 05:32 08/04/16 05:32 Labs: Short CBC 08/04/16 Range/Units 05:32 WBC 7.2 (4.3-11.1) K/mcL Hgb 12.4 L D (12.9-16.9) g/dL Hct 38.0 (37.5-50.1) % Plt Count 336 (140-400) K/mcL Neutrophils # 3.9 (1.6-8.9) K/mcL BMP 08/04/16 05:32 Sodium 139 Potassium 3.8 Chloride 104 Carbon Dioxide 27 BUN 10 Creatinine 0.77 Glucose 131 H Calcium 9.6 - ABG Interpretation ABG results: PT/INR, D-dimer PT 12.0 Seconds (9.4-12.1) 07/28/16 20:16 Consult Discharge Plan - Plan [facility] - 08/17/16 2:15 pm
[2016-08-04 11:54] VITALS: BP 141/81
[2016-08-04] MEDS: Acetaminophen 325 MG TABLET PO PRN (12:20)
--- NOTE | 2016-08-04 15:01 | Discharge Summary ---
<Shadi Yusuf - Last Filed: 08/04/16 15:36> Date of Encounter: 08/04/16 Time of Encounter: 08:30 - Discharge Diagnosis (1) Cellulitis Priority: Primary Status: Acute Qualifiers: Site of cellulitis: extremity Site of cellulitis of extremity: lower extremity Laterality: left Qualified Code(s): L03.116 - Cellulitis of left lower limb (2) Sepsis Priority: Secondary Status: Resolved Qualifiers: Sepsis type: sepsis due to unspecified organism Qualified Code(s): A41.9 - Sepsis, unspecified organism (3) Ingrown left big toenail Priority: Secondary Status: Acute (4) Chronic pain Priority: Secondary Status: Acute Qualifiers: Chronic pain type: chronic pain syndrome Qualified Code(s): G89.4 - Chronic pain syndrome (5) DVT prophylaxis Priority: Secondary Status: Acute - Discharge Medications Prescriptions: OxyCODONE ER (12 HR) [OxyCONTIN] 10 mg PO Q12HR #10 tab.er.12h Home Medications: Aripiprazole [Abilify] 10 mg PO DAILY 02/06/16 [History] Atorvastatin [Lipitor] 20 mg PO DAILY 02/06/16 [History] Furosemide [Lasix] 20 mg PO BID 02/06/16 [History] HydrOXYzine Pamoate 25 mg PO TID 02/06/16 [History] Cholecalciferol (D-3) [Vitamin D] 1,000 unit PO DAILY 05/12/16 [History] Losartan [Cozaar] 25 mg PO DAILY 05/12/16 [History] Metoprolol [Lopressor] 25 mg PO BID 05/12/16 [History] Potassium Chloride [K-Tab ER] 10 meq PO DAILY 05/12/16 [History] Pregabalin [Lyrica] 150 mg PO BID 05/12/16 [History] Tizanidine HCl [Zanaflex] 4 mg PO TID 05/12/16 [History] TraMADol [Ultram] 100 mg PO BID PRN 05/12/16 [History] Oxymorphone HCl [Oxymorphone HCl ER] 20 mg PO BID 07/28/16 [History] Acetaminophen [Tylenol] 650 mg PO Q6HR PRN #0 tablet 08/04/16 [Rx] Budesonide/Formoterol 160/4.5 [Symbicort 160/4.5] 1 puff IH BIDR inhaler [Rx] Docusate [Colace] 100 mg PO BID PRN #0 capsule 08/04/16 [Rx] Heparin 5,000 unit SQ Q12HR vial 08/04/16 [Rx] Ipratropium/Albuterol Neb [Duoneb] 3 ml IH [id number] PRN #0 inhsol 08/04/16 [Rx] Omeprazole [PriLOSEC] 20 mg PO DAILY@0630 capsule. 08/04/16 [Rx] Ondansetron ODT [Zofran ODT] 4 mg SL Q8HR PRN #0 tab.rapdis 08/04/16 [Rx] OxyCODONE ER (12 HR) [OxyCONTIN] 10 mg PO Q12HR #10 tab.er.12h 08/04/16 [Rx] Allergies/Adverse Reactions: Allergies amitriptyline [From Elavil] Allergy (Unknown, Verified 07/28/16 22:08) See Comments PATIENT UNSURE OF REACTIONS- LISTED ON [facility] CHART divalproex sodium Allergy (Unknown, Verified 07/28/16 22:08) See Comments PATIENT UNSURE OF REACTIONS- LISTED ON [facility] CHART ibuprofen [From Motrin] Allergy (Unknown, Verified 07/28/16 22:08) See Comments PATIENT UNSURE OF REACTIONS- LISTED ON [facility] CHART [place] Allergy (Unknown, Verified 07/28/16 22:08) See Comments PATIENT UNSURE OF REACTIONS- LISTED ON [facility] CHART lovastatin Allergy (Unknown, Verified 07/28/16 22:08) See Comments PATIENT UNSURE OF REACTIONS- LISTED ON [facility] CHART mirtazapine Allergy (Unknown, Verified 07/28/16 22:08) See Comments PATIENT UNSURE OF REACTIONS- LISTED ON [facility] CHART NSAIDS (Non-Steroidal Anti-Inflamma Allergy (Unknown, Verified 07/28/16 22:09) See Comments PATIENT UNSURE OF REACTIONS- LISTED ON [facility] CHART quetiapine Allergy (Unknown, Verified 07/28/16 22:08) See Comments PATIENT UNSURE OF REACTIONS- LISTED ON [facility] CHART simvastatin [From Zocor] Allergy (Unknown, Verified 07/28/16 22:08) See Comments PATIENT UNSURE OF REACTIONS- LISTED ON [facility] CHART trazodone Allergy (Unknown, Verified 07/28/16 22:08) See Comments PATIENT UNSURE OF REACTIONS- LISTED ON [facility] CHART Zolpidem Allergy (Unknown, Verified 07/28/16 22:08) See Comments PATIENT UNSURE OF REACTIONS- LISTED ON [facility] CHART Procedures/tests Complete & Pending: Procedures Performed prior 72 hours Category Date Time Status EV venous imaging LE LT Routine Y 08/02/16 17:58 Completed Date of admission: 07/28/16 23:17 Primary care physician: [facility] Consults: 08/01/16 08:50 Consult to Podiatry [CONS] Timed Consulting Provider: Podiatry [facility] Reason for Consult: assess R toe nail source for cellulitis Call Completed: Yes 08/04/16 09:41 Consult to PICC team [Consult to Invasive Line Access Team] [CONS] Routine Reason for Consult: Pt needs IV Abx for one more week. Line Type: EPIV 08/04/16 09:42 Consult to Impregnation Operator [CONS] Routine Reason for SW Consult: [facility] pt[facility] Plan to transfer to [facility] for continuation of IV Abx Discharging clinician: Shadi Yusuf Anticipated date of discharge: 08/04/16 - Patient Status Disposition: Transfer Short-Term Hosp Condition: Fair Functional capacity at discharge: independent ambulation Overall status at discharge: patient is progressing back to baseline - Discharge Instructions Instructions: Chest Pain (DC), Cellulitis (DC), Mood Disorders (DC), Chronic Obstructive Pulmonary Disease (DC), Sepsis (DC) Follow Up With: [facility],PCP [Primary Care Provider] - 08/17/16 2:15 pm Joseph Valles, DPM [Partnered Physician] - (In 2 weeks for his ingrown left big toenail ) Additional Instructions: Please finish total 14-day course of IV vancomycin and Unasyn. Please follow up with your primary care provider within a week after discharge from [facility]. Please follow up with Dr. Valles of [facility] regarding your ingrown left big toenail after discharge from [facility]. - Diet and Activity Activity: increase activity as tolerated Diet: low salt diet Hospital course: Mr. Aviles is a 41 year old male with PMH of COPD, HTN, hyperlipidemia, testicular cancer s/p orchiectomy and retroperitoneal lymphadnectomy (2005), bipolar disorder, anxiety, chronic pain and spinal stenosis. Patient presented to [facility] with pain in his left leg and chest pain. Patient was admitted on for sepsis secondary to left lower extremity cellulitis. Initial troponin at 0.04 but later trended to 0.01. Venous US of LLE is negative for DVT. Patient was treated with IV vancomycin and Unasyn. Patient's sepsis resolved as patient leukocytosis and tachycardia normalized. Podiatry was consulted for ingrown left big toenail and bedside partial nail avulsion is planned after cellulitis better treated. Patient's LLE redness and swelling improves over time. On 08/04/16, patient has received 7 days of IV vancomycin and Unasyn but still needs to finish total 14-day course given he still has some LLE redness and swelling. A powerglide was also placed the same day. Patient has been medically stable and after discussion with patient, patient agrees the transfer of care to [facility] where he will continue 7 more days of IV vancomycin and Unasyn. Patient is recommended to follow up with his PCP after discharge. Patient is also recommended to follow up with Dr. Valles of [facility] regarding his ingrown left big toenail. - Time Spent with Patient Total time spent providing and/or coordinating discharge services: Greater than 30 minutes - Constitutional Vitals: Temp Pulse Resp BP Pulse Ox 98.3 F 69 16 141/81 98 08/04/16 11:50 08/04/16 11:50 08/04/16 11:50 08/04/16 11:50 08/04/16 11:50 General appearance: Present: A&O X 3, no acute distress, answers questions appropriately - Head Head exam: Present: atraumatic, normocephalic - Eye Eye exam: Present: PERRL, conjuntiva pink, sclera anicteric Pupils: Present: PERRL - Neck Neck exam general surgery: Present: supple, trachea midline. Absent: lymphadenopathy - Respiratory Respiratory exam: Present: CTAB. Absent: accessory muscle use, rales, rhonchi, wheezes - Cardiovascular Cardiovascular exam: Present: RRR, +S1, +S2. Absent: diastolic murmur, gallop, rubs, systolic murmur - GI/Abdominal GI/Abdominal exam: Present: normal bowel sounds, soft, no peritoneal signs. Absent: distended, tenderness - Extremities Exam Extremities exam: Present: pedal edema, warm, radial pulses palpable and symetrical. Absent: calf tenderness, cyanotic Additional comments: LLE cellulitis swelling and erythema noted. - Neurological Exam Neurological exam: Present: CN II-XII intact, oriented X3, no focal deficits. Absent: pronater drift, facial droop, speech deficit - Skin Skin exam: Present: dry, intact, warm <Madeleine,Raji P - Last Filed: 08/04/16 18:27> Date of Encounter: 08/04/16 Procedures/tests Complete & Pending: Procedures Performed prior 72 hours Category Date Time Status EV venous imaging LE LT Routine Y 08/02/16 17:58 Completed Date of admission: 07/28/16 23:17 Primary care physician: PCP [facility] Consults: 08/01/16 08:50 Consult to Podiatry [CONS] Timed Consulting Provider: Podiatry [facility] Reason for Consult: assess R toe nail source for cellulitis Call Completed: Yes 08/04/16 09:41 Consult to PICC team [Consult to Invasive Line Access Team] [CONS] Routine Reason for Consult: Pt needs IV Abx for one more week. Line Type: EPIV 08/04/16 09:42 Consult to Impregnation Operator [CONS] Routine Reason for SW Consult: [facility] Plan to [facility] to [facility] for continuation of IV Abx Hospital course: Mr. Aviles is a 41 year old male - Time Spent with Patient Total time spent providing and/or coordinating discharge services: - Constitutional Vitals: Temp Pulse Resp BP Pulse Ox 98.3 F 69 16 141/81 98 08/04/16 11:50 08/04/16 11:50 08/04/16 11:50 08/04/16 11:50 08/04/16 11:50 - Attending Attestation I examined this patient and my medical decision-making was reviewed with the COMMUNITY DIETITIAN/PA/Advanced Practice Nurse/Resident Physician. I agree with the documented findings, disposition and treatment plan as described except to the extent set forth below. Spoke with hospitalized from [facility] ( Dr Goldstein) updated all medications and antibiotics case discussed at length.
--- NOTE | 2016-08-04 15:36 | Physician Discharge Referral ---
<Chau Yusuf-Thong - Last Filed: 08/04/16 15:33> [facility] Institutional Level of Care: Skilled - Diagnosis (1) Cellulitis Priority: Primary Status: Acute (2) Sepsis Priority: Secondary Status: Resolved (3) Ingrown left big toenail Priority: Secondary Status: Acute (4) Chronic pain Priority: Secondary Status: Acute (5) DVT prophylaxis Priority: Secondary Status: Acute - Transfer Medications Prescriptions: OxyCODONE ER (12 HR) [OxyCONTIN] 10 mg PO Q12HR #10 tab.er.12h Home Medications: Aripiprazole [Abilify] 10 mg PO DAILY 02/06/16 [History] Atorvastatin [Lipitor] 20 mg PO DAILY 02/06/16 [History] Furosemide [Lasix] 20 mg PO BID 02/06/16 [History] HydrOXYzine Pamoate 25 mg PO TID 02/06/16 [History] Cholecalciferol (D-3) [Vitamin D] 1,000 unit PO DAILY 05/12/16 [History] Losartan [Cozaar] 25 mg PO DAILY 05/12/16 [History] Metoprolol [Lopressor] 25 mg PO BID 05/12/16 [History] Potassium Chloride [K-Tab ER] 10 meq PO DAILY 05/12/16 [History] Pregabalin [Lyrica] 150 mg PO BID 05/12/16 [History] Tizanidine HCl [Zanaflex] 4 mg PO TID 05/12/16 [History] TraMADol [Ultram] 100 mg PO BID PRN 05/12/16 [History] Oxymorphone HCl [Oxymorphone HCl ER] 20 mg PO BID 07/28/16 [History] Acetaminophen [Tylenol] 650 mg PO Q6HR PRN #0 tablet 08/04/16 [Rx] Budesonide/Formoterol 160/4.5 [Symbicort 160/4.5] 1 puff IH BIDR inhaler [Rx] Docusate [Colace] 100 mg PO BID PRN #0 capsule 08/04/16 [Rx] Heparin 5,000 unit SQ Q12HR vial 08/04/16 [Rx] Ipratropium/Albuterol Neb [Duoneb] 3 ml IH [id number] PRN #0 inhsol 08/04/16 [Rx] Omeprazole [PriLOSEC] 20 mg PO DAILY@0630 capsule. 08/04/16 [Rx] Ondansetron ODT [Zofran ODT] 4 mg SL Q8HR PRN #0 tab.rapdis 08/04/16 [Rx] OxyCODONE ER (12 HR) [OxyCONTIN] 10 mg PO Q12HR #10 tab.er.12h 08/04/16 [Rx] Allergies/Adverse Reactions: Allergies amitriptyline [From Elavil] Allergy (Unknown, Verified 07/28/16 22:08) See Comments PATIENT UNSURE OF REACTIONS- LISTED ON [facility] divalproex sodium Allergy (Unknown, Verified 07/28/16 22:08) See Comments PATIENT UNSURE OF REACTIONS- LISTED ON [facility] CHART ibuprofen [From Motrin] Allergy (Unknown, Verified 07/28/16 22:08) See Comments PATIENT UNSURE OF REACTIONS- LISTED ON [facility] CHART [place] Allergy (Unknown, Verified 07/28/16 22:08) See Comments PATIENT UNSURE OF REACTIONS- LISTED ON [facility] CHART lovastatin Allergy (Unknown, Verified 07/28/16 22:08) See Comments PATIENT UNSURE OF REACTIONS- LISTED ON [facility] CHART mirtazapine Allergy (Unknown, Verified 07/28/16 22:08) See Comments PATIENT UNSURE OF REACTIONS- LISTED ON [facility] CHART NSAIDS (Non-Steroidal Anti-Inflamma Allergy (Unknown, Verified 07/28/16 22:09) See Comments PATIENT UNSURE OF REACTIONS- LISTED ON [facility] CHART quetiapine Allergy (Unknown, Verified 07/28/16 22:08) See Comments PATIENT UNSURE OF REACTIONS- LISTED ON [facility] CHART simvastatin [From Zocor] Allergy (Unknown, Verified 07/28/16 22:08) See Comments PATIENT UNSURE OF REACTIONS- LISTED ON [facility] CHART trazodone Allergy (Unknown, Verified 07/28/16 22:08) See Comments PATIENT UNSURE OF REACTIONS- LISTED ON [facility] CHART Zolpidem Allergy (Unknown, Verified 07/28/16 22:08) See Comments PATIENT UNSURE OF REACTIONS- LISTED ON [facility] CHART - Respiratory Orders Oxygen / L per min (2) Smoking Cessation: Smoking cessation has been advised. For more information, call the [place] Tobacco Quit Line at 7-405-QKAHNOW. - Lab Orders Lab Orders: Other (include drug levels w/frequency) (Need to check vancomycin trough given patient is on IV vancomycin.) - Ancillary Orders May use pressure relief devices daily prn - Advance Directives Code Status: Full Code - Mobility Orders Ambulate - Diet Orders Cardiac CERTIFICATION: I certify that the transfer of the above named patient to an Extended Care Facility is necessary for the continuing treatment of the diagnosis listed. The above information is true and accurate reflection of patient's current condition. Confidential - Redisclosure prohibited without a patient's written consent. <Raji Salvador P - Last Filed: 08/04/16 18:27> - Respiratory Orders Smoking Cessation: Smoking cessation has been advised. For more information, call the [employer] Quit Line at 1-677-UEMO-WAG. CERTIFICATION: I certify that the transfer of the above named patient to an Extended Care Facility is necessary for the continuing treatment of the diagnosis listed. The above information is true and accurate reflection of patient's current condition. Confidential - Redisclosure prohibited without a patient's written consent.
[2016-08-04] MEDS ORDERED: Aminoglycoside Consult 1 EACH MC ONE (16:02)
== END 2016-08-04 16:03 | disposition short-term general hospital (02) | DRG 872 ==
LOC: 2NENU 19:33 → EMEROO 19:33 → 2NENU 21:53
PROVIDERS: ADMIT Family Medicine; ATTEND Internal Medicine